=== PATIENT | female | born 1940 | race Caucasian/White ===

== ENCOUNTER 2022-04-05 10:10 | Emergency (ER) | payer MEDICARE, OTHER, SELFPAY ==
[2022-04-05] VITALS (18 sets, daily range): BP systolic 137–193; BP diastolic 61–79; PULSE 65–71; RESP 16–22; TEMP 36.5; O2SAT 96–100; BMI 23.5
--- NOTE | 2022-04-05 10:22 | DI.RAD.S_ITS ---
PROCEDURE: XR ANKLE LT MIN 3V INDICATIONS: missed step, fall, +deform L ankle TECHNIQUE: 3 views of the ankle were acquired. COMPARISON: None. FINDINGS: Bones: Significant dorsal and lateral subluxation of tibiotalar joint is seen with complete disruption of ankle mortise. Acute slightly comminuted fracture involving medial malleolus with lateral displacement of fractured fragment is seen. Acute slightly comminuted oblique fracture through distal fibular shaft/lateral malleolus is also seen with lateral displacement at fracture site. There is also suggestion of minimally displaced posterior malleolus fracture. Soft tissues: No tibiotalar joint effusion. Achilles tendon appears normal. Diffuse soft tissue swelling surrounding ankle joint is seen. IMPRESSION: Acute comminuted and displaced trimalleolar fracture as above. Dictated by: Curtis rOtez M.D. on 04/05/2022 at 10:51 Approved by: Curtis Ortez M.D. on 04/05/2022 at 10:52
--- NOTE | 2022-04-05 11:04 | ED_ITS ---
HPI - Extremity Injury (Lower) General Chief Complaint: Extremity Injury, Lower Stated Complaint: GLF ankle swelling Time Seen by Provider: 04/05/22 11:03 Source: patient, EMS and RN notes reviewed Mode of arrival: EMS Limitations: no limitations History of Present Illness HPI Narrative: This is an 81-year-old female with history of thrombocytosis, hypertension, dyslipidemia on an aspirin daily with history of partial hysterectomy. Patient states today she was walking down her steps she missed the last step and fell on her ankle. Patient has pain in her left ankle with obvious deformity and swelling and bruising. She states she did not hurt anything else she denies headache, no neck pain, no chest pain or shortness of breath, no back con abdominal or flank pain. She denies hitting her head. She denies any loss of consciousness. No nausea or vomiting. No GI or urinary symptoms. She states the ankle hurts but she denies any numbness or tingling currently. She can wiggle her toes but hurts to move it. She denies injuries elsewhere. Patient is on hydroxyurea for thrombocytosis. She has a history of partial hysterectomy. Patient states occasional tobacco, 1 alcoholic drink daily in the evening she has not had any today. No illicit. Phyllis Baig is her primary care. Patient states she is never had any issues with anesthesia. Related Data Home Medications Medication Instructions Recorded Confirmed [PROBIOTIC] 1 cap PO QDAY ##0 12/16/16 allopurinol 100 mg tablet 100 mg PO QDAY ##0 12/16/16 atorvastatin 80 mg tablet 80 mg PO HS ##0 12/16/16 coenzyme Q10 100 mg capsule (Co PO QDAY ##0 12/16/16 Q-10) folic acid 800 mcg tablet 0.8 mg PO QDAY ##0 12/16/16 furosemide 20 mg tablet 20 mg PO QDAY ##0 12/16/16 hydroxyurea 500 mg capsule 1,000 mg PO EVERY OTHER DAY ##0 12/16/16 hydroxyurea 500 mg capsule (Hydrea) 500 mg PO EVERY OTHER DAY ##0 12/16/16 losartan 50 mg tablet 50 mg PO QDAY ##0 12/16/16 metoprolol succinate 100 mg 100 mg PO QPM ##0 12/16/16 tablet,extended release 24 hr (Toprol XL) psyllium husk 0.52 gram capsule 2 cap PO QDAY ##0 12/16/16 (Metamucil) Previous Rx's Medication Instructions Recorded aspirin 81 mg tablet,delayed 325 mg PO QPM #30 tabs 12/17/16 release ranitidine HCl 300 mg tablet 300 mg PO QDAY #30 tabs 12/17/16 (Zantac) tramadol 50 mg tablet 50 mg PO Q6H PRN pain #14 tabs 04/05/22 Allergies Allergy/AdvReac Type Severity Reaction Status Date / Time Sulfa (Sulfonamide Allergy Unknown Unverified 06/02/17 12:48 Antibiotics) [SULFA (SULFONAMIDE ANTIBIOTICS)] Review of Systems Review of Systems ROS Unobtainable: All systems reviewed & are unremarkable except as noted in HPI and below Exam Narrative Exam Narrative: GEN: ,Patient appears in [id number] distress. HEAD: No evidence of trauma, no raccoon/Jennings sign. NECK: Nontender, painless range of motion, trachea midline Negative Nexus criteria, there is no midline line tenderness, distracting injury, altered mental status, neuro deficit, recent EtOH. EYES: PERRLA, EOMI ENT: External inspection normal, trachea is midline, Nares are clear, no septal hematoma, no dental or oral injury, airway is normal and with normal occlusion, No bony tenderness RESP: Chest is nontender and has symmetric movement, no ecchymosis, breath sounds are normal no crackles, wheezes or rales CVS: Heart sounds are normal, no murmur noted, No JVD. ABG/GI: Nontender, soft, normal bowel sounds, no distention, no organomegaly, pelvic rock is negative NEURO: Oriented AOx3, neuro is grossly intact, sensation and motor is normal all 4 extremities moving, cranial nerves II through XII are intact, GCS is 15 PSYCH: Normal mood and affect SKIN: Intact, warm and dry, no crepitus and without decubitus BACK: No CVA tenderness, no vertebral tenderness, no step-off's, no crepitus EXT: Patient has obvious deformity and ecchymosis of the left ankle. Cap refills less than 2 seconds. Patient does not have any pallor or cyanosis. She does not have any bony tenderness of the left her lower extremity in the foot toes or knee/hip. Rest of extremities are atraumatic with normal pulses and range of motion. Initial Vital Signs Initial Vital Signs: Vital Signs Pulse Rate 69 04/05/22 10:13 Pulse Oximetry 97 04/05/22 10:13 Procedures Orthopedic Joint Reduction Joint #1: Time of procedure: 12:00 Time Out Performed: Yes Side: left Joint Reduction Location: ankle Analgesia: other (iv fentanyl) Post-reduction neuro exam: intact and no change Post-reduction vascular: intact Post Reduction X-Ray Obtained: Yes Splint Applied: Yes Patient Tolerated Procedure: Well and No complications Orthopedic Splinting/Casting Injury #1: Time of procedure: 12:00 Lower Extremity Injury Location: ankle Lower Extremity Immobilizer: posterior splint and stirrup splint Other Orthopedic Equipment: walker Post splinting neuro exam: intact and no change Post splinting vascular exam: intact Placed by: Provider Course Orders Ordered: ED Orders 04/05/22 10:22 XR ankle LT min 3V Stat 04/05/22 11:58 XR ankle LT min 3V Stat Discontinued Medications Hydrocodone Bitart/Acetaminophen (Hydrocodone/Acet 10/325 Tablet) 1 tab PO NOW ONE Stop: 04/05/22 11:59 Last Admin: 04/05/22 12:21 Dose: 1 tab Documented By: AUGUSTO Fentanyl (Fentanyl 100 Mcg/2 Ml Inj) 25 mcg IV NOW ONE Stop: 04/05/22 10:49 Last Admin: 04/05/22 11:40 Dose: 25 mcg Documented By: AUGUSTO Vital Signs Vital signs: Vital Signs - 8 hr 04/05/22 10:20 04/05/22 10:20 04/05/22 10:30 Pulse Rate 68 67 Respiratory Rate Blood Pressure 163/73 H Pulse Oximetry 97 97 04/05/22 10:33 04/05/22 10:33 04/05/22 11:00 Pulse Rate 65 67 Respiratory Rate 22 Blood Pressure 181/71 H Pulse Oximetry 96 98 04/05/22 11:01 04/05/22 11:01 04/05/22 11:30 Pulse Rate 67 Respiratory Rate Blood Pressure 141/64 H 140/63 Pulse Oximetry 97 04/05/22 11:30 04/05/22 11:53 04/05/22 11:53 Pulse Rate 69 71 Respiratory Rate Blood Pressure 154/74 H Pulse Oximetry 98 97 04/05/22 12:00 04/05/22 12:01 04/05/22 12:01 Pulse Rate 70 70 Respiratory Rate Blood Pressure 137/62 Pulse Oximetry 96 04/05/22 12:28 04/05/22 12:30 04/05/22 12:36 Pulse Rate 71 70 Respiratory Rate 22 Blood Pressure 141/61 H Pulse Oximetry 97 100 04/05/22 12:57 04/05/22 13:00 04/05/22 13:01 Pulse Rate 65 68 Respiratory Rate Blood Pressure 152/61 H Pulse Oximetry 100 99 MDM - Extremity Injury (Lower) Imaging Data Extremity x-ray #1: Radiologist's Impression: Mayi Isabel??81??F??1940 ? Allergy/Adv: Sulfa (Sulfonamide Antibiotics) (More??) Close Ankle X-Ray (Signed) Curtis Ortez - 04/05/22 [place] [address] XRay Report Signed Patient: Mayi Isabel MR#: [id number] : 1940 Acct:[id number] Age/Sex: 81 / F Date of Service: 04/05/22 Loc: ED Accession Number: [id number] ?? Procedure: XR ankle LT min 3V Ordering Provider: Larisa Lewis D.O. PROCEDURE:? XR ANKLE LT MIN 3V ? INDICATIONS:? missed step, fall, +deform L ankle ? TECHNIQUE:? 3 views of the ankle were acquired.? ? COMPARISON:? None. ? FINDINGS:? ? Bones:? Significant dorsal and lateral subluxation of tibiotalar joint is seen with complete disruption of ankle mortise.? Acute slightly comminuted fracture involving medial malleolus with lateral displacement of fractured fragment is seen.? Acute slightly comminuted oblique fracture through distal fibular shaft/lateral malleolus is also seen with lateral displacement at fracture site.? There is also suggestion of minimally displaced posterior malleolus fracture. ? Soft tissues:? No tibiotalar joint effusion.? Achilles tendon appears normal.? Diffuse soft tissue swelling surrounding ankle joint is seen. ? ? IMPRESSION:? Acute comminuted and displaced trimalleolar fracture as above. ? ? Dictated by: Curtis Ortez M.D. on 04/05/2022 at 10:51 ? ? Approved by: Curtis Ortez M.D. on 04/05/2022 at 10:52?? [facility] Narrative Medical decision making narrative: This an 81-year-old female who had fall when she missed the last step on her stairs. Patient denies injury elsewhere. She is obvious fracture with some deformity quite a bit of bruising no laceration or tenting. Patient had cap refill intact, sensation intact. Discussed conscious sedation versus IV pain medications reduction. Patient elects for IV pain medication and patient had traction some slight internal rotation and was splinted. Neurovascularly intact afterwards. Repeat x-rays. Patient tolerated procedure very well. Spoke with Dr. Parikh from Orthopedic surgery. Patient needs to follow up with Orthopedics for surgery. He reviewed images. Discharge Plan Departure Patient Disposition: Home Clinical Impression: Ankle fracture, left Instructions: DI for Ankle Fracture Activity Restrictions/Additional Instructions: Follow-up with orthopedic surgery. Please call tomorrow morning to set up an appointment in the next week. Referral is included below. You may take Tylenol up to a 1000 mg every 6 hours as needed for pain. If in adequate you can take tramadol 1-2 tablets every 6 hours as needed for pain. This medication can make you sleepy do not drive, perform hazardous activities or make any major decisions while taking it. This medication will make you constipated please take a stool softener once to twice daily until stools are soft and regular. Prescription sent to [facility] Splint Care: Keep splint clean and dry. Elevated affected body part to decrease swelling. OK to use ice pack on the affected body part. Use for 15-20 minutes each time, for 5-6x per day. If you develop worsening pain, numbness, tingling, discoloration of the affected body part, loosen the splint by loosening the CHELSEY wrap, and either see your doctor for an urgent re-assessment, or return to the Emergency Department. Return to the Emergency Department for any new or worsening symptoms. Prescriptions: New tramadol 50 mg tablet 50 mg PO Q6H PRN (Reason: pain) Qty: 14 0RF No Action hydroxyurea 500 MG capsule 1,000 mg PO EVERY OTHER DAY Qty: 0 losartan 50 MG tablet 50 mg PO QDAY Qty: 0 hydroxyurea [Hydrea] 500 MG capsule 500 mg PO EVERY OTHER DAY Qty: 0 atorvastatin 80 MG tablet 80 mg PO HS Qty: 0 furosemide 20 MG tablet 20 mg PO QDAY Qty: 0 metoprolol succinate [Toprol XL] 100 MG tablet extended release 24 hr 100 mg PO QPM Qty: 0 allopurinol 100 MG tablet 100 mg PO QDAY Qty: 0 folic acid 0.8 MG tablet 0.8 mg PO QDAY Qty: 0 [PROBIOTIC] 1 cap PO QDAY Qty: 0 psyllium husk [Metamucil] 0.52 GM capsule 2 cap PO QDAY Qty: 0 coenzyme Q10 [Co Q-10] 100 mg capsule PO QDAY Qty: 0 aspirin 81 MG tablet,delayed release (DR/EC) 325 mg PO QPM Qty: 30 0RF ranitidine HCl [Zantac] 300 MG tablet 300 mg PO QDAY Qty: 30 0RF Referrals: Nikko Parikh MD [Physician] - Stand Alone Forms: Patient Portal/API
[2022-04-05] MEDS: fentaNYL 100 MCG/2 ML INJ 25 MCG IV (11:40)
--- NOTE | 2022-04-05 11:58 | DI.RAD.S_ITS ---
PROCEDURE: XR ANKLE LT MIN 3V INDICATIONS: post TECHNIQUE: 3 views of the ankle were acquired. COMPARISON: [facility], CR, XR ANKLE LT MIN 3V, 04/05/2022, 10:31. FINDINGS: Bones: Interval reduction of earlier noted trimalleolar fracture and subluxation of left ankle with significantly improved ankle alignment. No new fracture or dislocation. No suspicious bony lesions. Soft tissues: No tibiotalar joint effusion. Achilles tendon appears normal. IMPRESSION: Interval reduction of earlier noted displaced trimalleolar fracture and subluxation with improved ankle alignment. Dictated by: Curtis Ortez M.D. on 04/05/2022 at 12:32 Approved by: Curtis Ortez M.D. on 04/05/2022 at 12:33
[2022-04-05] MEDS: HYDROCODONE/ACET 10/325 TABLET 1 TAB PO (12:21)
== END 2022-04-05 13:43 | disposition home or self-care (01) ==
PROVIDERS: Emergency Provider Emergency Medicine
DX: S82.52XA Displaced fracture of medial malleolus of left tibia, initial encounter for closed fracture (principal); W10.9XXA Fall (on) (from) unspecified stairs and steps, initial encounter
CPT/HCPCS: 27762; 29515; 73610; 99284; J3010

== ENCOUNTER 2022-04-10 12:36 | Day surgery (SDC) | payer MEDICARE, OTHER, SELFPAY ==
[2022-04-10] VITALS (10 sets, daily range): BP systolic 97–121; BP diastolic 37–70; PULSE 60–72; RESP 12–18; TEMP 36.6–37.2; O2SAT 94–97; BMI 23.5
--- NOTE | 2022-04-10 | DI.RAD.S_ITS ---
PROCEDURE: XR ANKLE LT 2V INDICATIONS: ORIF TECHNIQUE: Four intraoperative fluoroscopic spot views of the ankle were acquired. COMPARISON: [facility], CR, XR ANKLE LT MIN 3V, 04/05/2022, 11:57. FINDINGS: Intraoperative fluoroscopy demonstrates hardware along the medial distal tibia and lateral fibula. Radiopaque band traverses the syndesmosis. There is normal mortise alignment. IMPRESSION: Expected intraoperative appearance of ORIF left ankle. Dictated by: Aydee Benson M.D. on 04/10/2022 at 20:30 Approved by: Aydee Benson M.D. on 04/10/2022 at 20:31
[2022-04-10] MEDS: LACTATED RINGERS 1,000 ML 100 ML IV ×2 (13:41→16:55)
--- NOTE | 2022-04-10 14:33 | PM.PREOP ---
Pre-operative Note Interval Note History & Physical reviewed/Exam performed by Physician: Yes Changes to H&P: No
--- NOTE | 2022-04-10 15:04 | SUR.PREOP ---
Block start time [1440] . Monitoring initiated and maintained throughout procedure. Oxygen and medications given per anesthesiologist instructions. Patient remained stable throughout procedure, no adverse reactions noted. Block end time [1455].
[2022-04-10] MEDS: CEFAZOLIN 2 GM/100 ML PREMIX 100 ML IV (15:10)
[2022-04-10] MEDS: BUPIVACAINE 0.5% W/ EPI (PF) 30 ML VIAL INJ (15:44)
--- NOTE | 2022-04-10 15:47 | SUR.OPER ---
Supine on padded OR bed, head on pillow, arms secured on padded arm boards at <90 degrees abduction, legs uncrossed, safety belt at abdomen, tape over blanket over nonoperative lower leg.
--- NOTE | 2022-04-10 17:50 | P.OP_ITS ---
Operative Date/Time/Diagnoses Date of procedure: 04/10/22 Time of procedure: 14:50 Pre-op diagnosis: Trimalleolar ankle fracture left Syndesmotic disruption left Osteoporotic left trimalleolar ankle fracture Post-op diagnosis: same Procedure & Clinicians Procedure: Open reduction internal fixation trimalleolar ankle fracture without fixation posterior malleolus Open reduction internal fixation syndesmosis Same procedure as scheduled: Yes Indications: Patient is an 81-year-old female that sustained a ground level fall down stairs and sustained a osteoporotic trimalleolar ankle fracture dislocation. This was a trimalleolar fracture dislocation. She was seen in [facility] Emergency room and placed in a splint. She is an unstable ankle fracture pattern has been indicated for surgical fixation to allow mobility, function and reduce risk of posttraumatic arthritis deformity and dysfunction. The risks and benefits of the procedure have been discussed with the patient and given the opportunity to ask questions. The risks of surgery include but are not limited to infection, malunion, nonunion, persistence of pain, damage to nerves and blood vessels, posttraumatic arthritis, DVT, PE, cardiopulmonary complications and . The patient expressed a thorough understanding of the risks and benefits of surgery and has elected to proceed. Consent was signed in the office. Surgeon: Tiesha Cespedes Click Yes if Unassisted: Yes Anesthesia Type: General, Peripheral nerve block and Local (Peripheral nerve block was placed by the anesthesia team for postoperative pain control. Additional local anesthetic with 0.25% Marcaine was added, 20 cc) Operative Notes Findings: Severely osteoporotic bone around the medial malleolus fracture with comminution. Gonzalez B distal fibula fracture. Mildly displaced small posterior malleolus fracture and disruption of syndesmosis Ankle was reduced with supination Danielle maneuver. Small open incision was made to reduce and clamp the fibula fracture restoring length and alignment. This was fixed with a Arthrex fibula locked nail 3.8 x 130 and interlocking screws. The medial malleolus was comminuted and osteoporotic it was fixed with a distal tibial medial hook plate with separate 4-0 cannulated screw through the tines to help compress the fracture fragment. Posterior malleolus fracture was small and treated non operatively but syndesmosis was stabilized with a syndesmotic suture button tightrope Xp device Stress examination of the ankle was stable after fixation was completed. Patient had moderate swelling but no blisters and was somewhat improved from clinic visit earlier in the week. There is ecchymosis about the knee and ankle Closure Type: primary Specimen(s): none sent Prosthetic devices, grafts, tissues, transplants, or devices: Arthrex fibula locked nail 3.8 x 130 Distal interlocking screws 2.7 x2 and 1x 3.0 Medial malleolus: Arthrex medial malleolus hook plate 3.5 cortical screws proximal, 2.7 locking screws distally, 4.0 cannulated screw Syndesmosis: Tight rope XP, Arthrex Estimated Blood Loss (mL): 10 Blood products transfused: none Tourniquet time (min): 80 Procedure in detail: Patient was seen in the preoperative area the site of surgery was marked informed consent confirmed. She was brought back to the operating room by the anesthesia team positioned supine on operative table. A nerve block was placed by the anesthesia team in the block room for postoperative pain control. Patient was placed on operative table. Bony prominences were well padded. A well-padded thigh tourniquet was placed on the left thigh. The left lower extremity was prepped and draped in the standard sterile fashion. A formal time-out procedure was performed confirming the patient's side and site of surgery administration of appropriate preoperative antibiotic. All were in agreement. Informed consent was present Esmarch was used for exsanguination the tourniquet raised on the thigh to 250 mmHg. Fibular fixation: Attention was turned to the ankle. A supination quickly maneuver was done to help with the reduction. C-arm was brought in. A wire was used to marquise out the level of the fibula fracture and entry trajectories for the guidewire for the fibula locked nail. Then a small incision at the level of the fracture was made laterally and dissected down to bone. A lobster claw clamp was used to reduce the fracture restoring length and alignment and rotation. Once this was complete the guidewire for the fibula locked nail was introduced proximally 1 cm distal to the end of the distal tibia and advanced to the bone just lateral to the malleolar fossa and in line with the canal on the lateral view. The guidewire was oscillated across the distal fragment and then into the canal. Once trajectory was acceptable this was over-drilled 1st with the opening drill and then with the Reamer. The 4-0 Reamer was placed and the 3.8 nail selected. 3.8 nail was then placed into the canal after the guidewire was removed. The nail was sunk to the appropriate level then the talons were deployed. Distal interlocking screws were placed. Of note the most distal 2.7 screw pulled directly out back on the screwdriver therefore this was replaced with a 3.0 screw. Once distal fixation with screws was completed attention was turned medially. Medial malleolus fixation. A separate incision was made over the level of the medial malleolar fracture care was taken to protect the saphenous neurovascular bundle. The fracture was demonstrated there was infolded periosteum this was removed fracture was reduced and held with a K-wire. There was noted to be excessive poor bone quality and osteoporosis around the medial malleolar fragment and medial wall of the tibia metaphysis. Therefore the patient was selected for a locking hook plate to address the osteoporotic nature of the bone. The hook plate was positioned on the bone and provisionally fixed with BB tacks. Then a 4-0 screw was drilled and placed over the K-wire through the tines of the plate to help compress this to bone and provide additional fixation in the distal fragment. Once this was completed proximal nonlocking screws were placed to bring the plate to the bone proximally and then locking 2.7 screws distally. This provided anatomic reduction of the medial malleolus fracture and stable fixation for the osteoporotic fracture. The posterior malleolus fracture was small and treated non operatively. Because the posterior malleolus fracture was treated non operatively and instability in the syndesmosis flexion was made for a syndesmotic suture button device this decision was made for the width of the button on either side would allow more dispersed forces and reduce risk of loosening or pullout compared to a screw for this particular osteoporotic patient. This was drilled through the guide from the fibula locked nail and then placed in the standard fashion. This was tightened down and then fluoroscopic stress exam was performed noted anatomic reduction of the syndesmosis and no widening under stress exam post fixation. Once this was completed the tourniquet was released hemostasis was achieved and the wounds were closed in a layered fashion with 2-0 Vicryl 4-0 Monocryl and 3-0 nylon suture. Additional local anesthetic was infiltrated. Wounds were dressed with Xeroform gauze Webril and a bulky Romero style splint. Patient was woken from anesthesia and taken to the recovery room in good condition. There no immediate complications from this procedure. All counts were correct. Complications: none Post-operative Condition: stable Disposition: PACU Plan for aftercare: Nonweightbearing or toe-touch but it is okay to put the foot down for balance and transfers. Once incisions are healed at 1st postoperative appointment will try to advance weight-bearing in a walking boot. We will use aspirin 325 daily for DVT prophylaxis. Keep splint dry.
== END 2022-04-10 18:16 | disposition home or self-care (01) ==
PROVIDERS: Referring Provider Orthopaedic Surgery Foot and Ankle Surgery; Visit Provider Orthopaedic Surgery Foot and Ankle Surgery
PROC: (CPT 27829; principal; 2022-04-10 14:30)
DX: S82.852A Displaced trimalleolar fracture of left lower leg, initial encounter for closed fracture (principal); S93.432A Sprain of tibiofibular ligament of left ankle, initial encounter; M81.0 Age-related osteoporosis without current pathological fracture; W10.9XXA Fall (on) (from) unspecified stairs and steps, initial encounter; Y92.009 Unspecified place in unspecified non-institutional (private) residence as the place of occurrence of the external cause; G89.18 Other acute postprocedural pain
CPT/HCPCS: 27829; 27822; 64450; 73600; 76000; C1713; J0690; J1100; J2250; J2405; J2704; J3010

== ENCOUNTER → 2023-07-30 14:33 | Outpatient (CLI) | payer MEDICARE, OTHER, SELFPAY ==
--- NOTE | 2023-07-30 | DI.ECHO.S_ITS ---
[facility] : : [address] : : [place] : : [address] : : Phone: [phone] Echocardiogram Report + + :Name: TIMOTHY MCCLENDON Study Date: 07/30/2023 Height: 64 in : :Hospital ReadingLocation: Weight: 150 lb : : Gender: Female BSA: 1.7 m2 : :: 1940 Age: 83 yrs BP: 142/81 mmHg: :Reason For Study: CARDIOMYOPATHY : :Ordering Physician: GAIL, : :REINA Performed By: Lisa Lucas : :Referring: REINA REYNOLDS : + + Interpretation Summary A-fib with controlled rate. Normal LV size and mild concentric LVH. Normal wall motion and LV systolic function. Ejection fraction 60-65%. Mild left atrial enlargement; otherwise normal chamber sizes. No significant valvular abnormalities. No prior study available for comparison. Procedure: A two-dimensional transthoracic echocardiogram with color flow and Doppler was performed. The study quality was technically adequate. There is no prior echocardiogram noted for this patient. The patient was in atrial fibrillation with heart rates between 50-69 bpm during the exam. Left Ventricle: The left ventricle is normal in size. Left ventricular wall thickness is mildly increased. The ejection fraction is estimated to be 60- 65%. Diastolic function could not be accurately assessed due to atrial fibrillation. Right Ventricle: The right ventricle is at the upper limits of normal in size. The right ventricular systolic function is normal. Atria: The left atrium is mildly dilated. Right atrial size is normal. There is no Doppler evidence for an interatrial shunt. Mitral Valve: The mitral valve is normal in structure and function. There is mild mitral regurgitation. Aortic Valve: The aortic valve is trileaflet. The aortic valve opens well. There is no aortic valve stenosis. There is trace aortic regurgitation. Tricuspid Valve: The tricuspid valve is normal in structure and function. There is mild tricuspid regurgitation. The right ventricular systolic pressure is estimated to be at least 47 mmHg based on an estimated right atrial pressure of 3 mm Hg. Pulmonic Valve: The pulmonic valve leaflets are thin and pliable; valve motion is normal. There is mild pulmonic regurgitation. Great Vessels: The aortic root is normal size. The dimensions of the ascending aorta are normal. The IVC is of normal diameter and collapses greater than 50% with a sniff. This suggests a low right atrial pressure of 3 mm Hg. Pericardium/ Pleura There is no pericardial effusion. There is a small left- sided pleural effusion. MMode/2D Measurements & Calculations LVIDd: 5.1 cm LVOT diam: 2.0 cm LVIDs: 3.3 cm Ao root diam: 3.2 cm FS: 35.7 % asc Aorta Diam: 3.8 cm IVSd: 1.2 cm Ao Arch Diam (Prox Trans): 3.0 cm LVPWd: 1.1 cm LV arevalo. diameter/BSA (cm/m^2): 2.9 LV sys. diameter/BSA (cm/m^2): 1.9 LA A2 area: 21.4 cm2 RA long axis: 6.2 cm LA A4 area: 23.8 cm2 RA area: 19.4 cm2 LA length (vol): 6.0 cm RA vol: 51.9 ml LA vol: 72.9 ml RA : 30.0 ml/m2 LA vol index: 42.1 ml/m2 IVC diam: 1.8 cm RVD1 (basal): 4.0 cm RVD2 (mid): 3.5 cm TAPSE: 1.7 cm Doppler Measurements & Calculations Ao V2 max: 148.1 cm/sec LVOT Max Junior: 104.7 cm/sec Ao V2 mean: 98.9 cm/sec LV V1 max P.4 mmHg Ao max P.8 mmHg LV V1 VTI: 22.3 cm Ao mean P.4 mmHg JUAN PABLO(I,D): 2.2 cm2 Ao V2 VTI: 32.5 cm JUAN PABLO(V,D): 2.3 cm2 sev ratio: 0.69 JUAN PABLO indexed to BSA (cm^2/m^2): 1.3 MV E max junior: 92.8 cm/sec TR max junior: 327.7 cm/sec MV A max junior: 0.71 cm/sec TR max P.0 mmHg MV E/A: 131.3 PA V2 max: 95.7 cm/sec Med Peak E' Junior: 8.8 cm/sec PA V2 mean: 71.2 cm/sec E/E' med: 10.6 PA mean P.2 mmHg Lat Peak E' Junior: 11.0 cm/sec PA pr(Accel): 58.4 mmHg E/E' lat: 8.4 E/e' average: 9.5 MV dec time: 0.19 sec SV(LVOT): 72.3 ml Electronically signed by: Reina Reynolds M.D. on Reading Physician:07/30/2023 04:27 PM
== END ==
PROVIDERS: PCP Nurse Practitioner Family; Referring Provider Internal Medicine; Visit Provider Internal Medicine
DX: I42.8 Other cardiomyopathies (principal); I08.1 Rheumatic disorders of both mitral and tricuspid valves; J90 Pleural effusion, not elsewhere classified
CPT/HCPCS: 93306

== ENCOUNTER 2023-11-17 10:43 | Day surgery (SDC) | payer MEDICARE, OTHER, SELFPAY ==
[2023-11-12 12:30] VITALS: BMI 25.7
[2023-11-17] VITALS (15 sets, daily range): BP systolic 86–155; BP diastolic 42–75; PULSE 46–61; RESP 7–18; TEMP 35.2–36.8; O2SAT 85–100; BMI 23.6
--- NOTE | 2023-11-17 06:00 | DI.RAD.S_ITS ---
PROCEDURE: XR KNEE RT 1TO2V INDICATIONS: TKA TECHNIQUE: 2 view(s) of the knee acquired. COMPARISON: None. FINDINGS: Bones: Patient is status post knee joint arthroplasty. Hardware components are in expected positions. Visualized bony structures are intact. Soft tissues: Overlying postoperative changes are noted. IMPRESSION: Expected post-operative appearance after right total knee arthroplasty. Dictated by: New Julian M.D. on 11/18/2023 at 11:40 Approved by: New Julian M.D. on 11/18/2023 at 11:40
[2023-11-17] MEDS: LACTATED RINGERS 1,000 ML 42 ML IV ×2 (11:54→13:44)
[2023-11-17] MEDS: ACETAMINOPHEN 325 MG TABLET 975 MG PO (11:54)
--- NOTE | 2023-11-17 12:30 | PM.PREOP ---
Pre-operative Note Interval Note History & Physical reviewed/Exam performed by Physician: Yes Changes to H&P: No
[2023-11-17] MEDS: CEFAZOLIN 2 GM/100 ML PREMIX 100 ML IV ×2 (12:55→20:39)
--- NOTE | 2023-11-17 13:35 | SUR.OPER ---
Supine on padded OR bed. Pillow under head, arms secured on padded armboards <90 degree abduction. Safety belt across torso. Non-operative leg secured with tape over blanket over lower leg. Operative leg secured in DeMayo/Wu/Nathe positioner. Foam padded brace at thigh of operative leg.
[2023-11-17] MEDS: BUPIVACAINE 0.25% (PF) 60 ML, EPINEPHrine 0.3 MG INJ (13:41)
[2023-11-17] MEDS: BUPIVACAINE LIPOSOME 266 MG/20 ML VIAL INJ (13:42)
[2023-11-17] MEDS: TRANEXAMIC ACID 1,000 MG VIAL 1000 MG INJ (14:33)
--- NOTE | 2023-11-17 15:05 | P.OP_ITS ---
Operative Date/Time/Diagnoses Date of procedure: 11/17/23 Time of procedure: 13:30 Pre-op diagnosis: Right knee arthritis Post-op diagnosis: same Procedure & Clinicians Procedure: Total knee replacement right CPT code 60410 Robotic assisted surgery S2 900 Computer navigation assisted surgery 35135 Same procedure as scheduled: Yes Indications: The patient is a 83-year-old female with end-stage knee arthritis that has failed conservative treatments and has been indicated for total knee arthroplasty. The risks and benefits of the procedure have been discussed with the patient and given the opportunity to ask questions. The risks of surgery include but are not limited to infection, malunion, nonunion, persistence of pain, damage to nerves and blood vessels, posttraumatic arthritis, DVT, PE, coardiopulmonary complications and . The patient expressed a thorough understanding of the risks and benefits of surgery and has elected to proceed. Consent was signed. Surgeon: Tiesha Cespedes Email Marketing Coordinator: Dayton Pollard Anesthesia Type: General and Local Operative Notes Findings: End-stage right knee arthritis severe eburnated bone patellofemoral joint high- grade arthritis medial and lateral compartments with a degenerative meniscal tears and meniscal calcification. No fractures. Closure Type: primary Specimen(s): none sent Prosthetic devices, grafts, tissues, transplants, or devices: Bullock and nephew journey bCS II Femur cobalt chromium size 4 Tibia size 3 Poly size 9 mm Patella 32.5 x 7.5 round Estimated Blood Loss (mL): 30 Blood products transfused: none Tourniquet time (min): 79 Procedure in detail: Patient was seen in the preoperative area where the patient and site of surgery were identified in the operative knee was marked informed consent confirmed. This was the right knee. Patient received the appropriate preoperative antibiotics this was 2 g of Ancef. And other preoperative medications and was taken to the operating room placed on operating table in the supine position. General anesthetic was administered. The operative extremity was then prepped and draped in the standard sterile fashion with a nonsterile tourniquet high on the thigh. Patient was placed on the green foam bolsters. A lateral post was placed at the level of the proximal thigh /trochanter area as a lateral post. Formal time-out procedure was performed confirming the patient's side and site of surgery and administration of appropriate preoperative antibiotics and implants were in the room accounted for. All were in agreement. Patient received a preoperative dose of tranexamic acid and then a 2nd dose at tourniquet release Patient was prepped and draped in the standard sterile fashion and the right foot was placed into the leg del valle. This was taken into high flexion and the incision was marked out over the anterior knee to the level of the medial tubercle tubercle. The Esmarch was then used for exsanguination and the tourniquet was inflated to 250 mmHg. Was made through the skin and subcutaneous tissue in high flexion this was then brought down into 30? of flexion for the medial parapatellar arthrotomy. A marker pen was used to marquise the arthrotomy site for later repair. Joint fluid was evacuated. The anterior osteophytes and soft tissues were removed. Routine medial release was initially made along the medial proximal tibia with Bovie. The patella was 1st cut using the saw sized and prepped and then subluxed throughout the case and protected. The leg was then taken into extension and the patella was everted and the patella was cut to accommodate the patellar button. This was sized to a 32 mm button for a 7.5 mm thickness to recreate the original dimensions of the patella. Poly was removed and the protector replaced and the patella was subluxed and the knee was taken back up into flexion and attention was returned to the femur. Then the rotational landmarks of [place]ites[place] line and the trans epicondylar axis were marked on the femur with electrocautery. ACL and PCL were released. Then the Cori robotic pins were placed into the femur and tibia and the race set up. Landmarks were established and the robotic planning was commenced. Plan was developed and improved and adjusted as necessary to create a balanced knee. Preoperative alignment was 0? of varus postoperative alignment plan for the same. Balance plan with resections for 1-2 mm laxity medial and lateral and balanced in flexion extension was achieved. 3? of external rotation was placed on the distal femur to match the [place] alignment. Plan was satisfactory the bur was used to remove the distal femur then the 5 in 1 cutting block was applied complete the femur cuts. Attention was then turned to the tibia and the tibial resection was made in accordance with the robotic planning. This was checked with the extension block and was appropriate per the plan. The trials were placed. And the femoral notch was cut a standard fashion using Reamer then slap hammer. The knee was trialed and the checked. Knee was balanced in flexion extension. Range of motion 0-130 degrees was obtained. The rotation femoral trial was marked Bovie on the bone and checked with a long trav. The tibia was then finished with a drill and flange cut and then The trial implants were removed. Then in extension the posterior capsule was injected with a mixture of 40 mL of 0.25% Marcaine and 20 mL of 266 mg Exparel care to avoid excessive injection posterior laterally. The remainder of this was saved for the capsule and subcutaneous tissue and placed during cement curing. The wound and bone was irrigated with pulsatile lavage. This was then dried with a sponge. The components were verified and opened and the cement was mixed. Cement was applied to the components and then to the bone then the tibia was cemented in place 1st followed by the femur then the patella. Excess cement was removed. With care looking around the back of the knee. Remainder of the injection was injected around the capsule. trial poly was placed back in the leg was placed into extension for the patellar cementing. After this was cured approximately 15 minutes later and the dilute Betadine solution was placed for at least 3 minutes in the wound this was then irrigated out and the final poly was placed. This was a 9 mm poly. The tourniquet was released hemostasis was achieved. Final 1g of tranexamic acid was given IV at the time of tourniquet release. The capsule was closed with 1. Ethibond suture. Followed by a running Quill stitch. Subcutaneous layer was closed with 3-0 Vicryl suture. Skin was closed with a running V lock suture Stratafix Monocryl type suture and Dermabond. An woo dressing was placed . An Donald wrap was applied. Anesthetic was terminated the patient was woken from anesthesia and taken to recovery room in good condition. There no immediate complications from this procedure. The patient will be maintained on a standard total knee replacement protocol with weight-bearing as tolerated. Complications: none Post-operative Condition: stable Disposition: PACU Plan for aftercare: Weightbear as tolerated. Commence range of motion immediately. Standard postop protocol for total knee arthroplasty. We will work with physical therapy and occupational therapy. We will restart her Eliquis on postoperative day 1. May restart her hydroxyurea in 1 week. Follow up in Orthopedic Clinic in 2 weeks. She has a woo dressing. The woo battery we will stop working after 7 days and the hose can be cut the dressing will remain in place until follow up in orthopedic clinic.
--- NOTE | 2023-11-17 16:33 | SUR.PHASEI ---
1630 - Patient's heart rate consistently in the 40-50's. anesthesia aware and states patient may transfer to floor. Patient not speaking, but following commands and making eye contact and smiling. , Ed, at bedside. Patient said one sentence to him, but is otherwise not talking. Does not appear to be in pain. Anesthesia aware of not talking and states patient may transfer to floor. Report given to receiving floor care RNMonalisa
--- NOTE | 2023-11-17 17:04 | PC.NURSE ---
Patient arrived to room 203 at 1645. VSS, afebrile on 2 LNC. She is A&OX1-2, pleasant. She is not able to rate her pain level but turns side to side in bed and able to slightly lift leg without wincing or moaning. CHANELLE dressing flashing green light, paige wrap c/d/i. supportive at bedside. Bed alarm placed, IVF LR running, purewick placed, admission assessment completed, call light in place, SCD's on, introduced to IS, and frequent rounding.
[2023-11-17] MEDS: ACETAMINOPHEN 325 MG TABLET 650 MG PO ×2 (17:42→22:10)
[2023-11-17] MEDS: LACTATED RINGERS 1,000 ML 100 ML IV (17:43)
[2023-11-17] MEDS: carvediloL 12.5 MG TABLET 25 MG PO (20:38)
[2023-11-17] MEDS: ATORVASTATIN 20 MG TABLET 80 MG PO (20:38)
[2023-11-17] MEDS: DOCUSATE 100 MG CAPSULE PO (20:38)
[2023-11-17] MEDS: OXYCODONE IR 5 MG TABLET PO (23:24)
--- NOTE | 2023-11-18 01:11 | PC.NURSE ---
Bladder scan: 30mL, denies pain/pressure or feeling of needing to void. Encouraging fluids, pt on fluids as ordered.
[2023-11-18 02:53] VITALS: O2SAT 96
[2023-11-18] MEDS: LACTATED RINGERS 1,000 ML 100 ML IV (03:46)
[2023-11-18] MEDS: ACETAMINOPHEN 325 MG TABLET 650 MG PO ×2 (04:40→12:14)
[2023-11-18] MEDS: CEFAZOLIN 2 GM/100 ML PREMIX 100 ML IV (04:40)
[2023-11-18] MEDS: hydrOXYzine HCL 25 MG TABLET PO (04:40)
[2023-11-18 05:06] LABS: Add Manual Diff / Slide Review NO; Basophils Absolute Auto 0 /uL (0-100); Eosinophils Absolute Auto 0 /uL (0-450); Hematocrit 32.5 % (36-46); Hemoglobin 10.9 g/dL (12.0-16.0); Lymphocytes Absolute Auto 300 /uL (1100-4500); Lymphocytes Percent Auto 2.4 % (25-40); Mean Corpuscular HGB Conc 33.7 % (30-36); Mean Corpuscular Hemoglobin 40.2 PG (26-34); Mean Corpuscular Volume 119.5 fL (80-100); Monocytes Absolute Auto 1000 /uL (0-900); Neutrophils Absolute Auto 11600 /uL (1500-7000); Neutrophils Percent Auto 89.6 % (50-75); Platelet Count 490 X10^3/uL (150-400); Red Blood Cell Count 2.72 X10^6/uL (4.0-5.2); Red Cell Distribution Width 14.5 % (11.6-14.8); White Blood Cell Count 12.9 X10^3/uL (4.5-11.0)
[2023-11-18 05:32] LABS: BUN Creatinine Ratio 12.3 (6-22); Blood Urea Nitrogen 9 mg/dL (7-17); Calcium 8.8 mg/dL (8.4-10.2); Carbon Dioxide 26 mmol/L (22-32); Chloride 102 mmol/L (98-107); Estimated Glomerular Filt Rate > 60 mL/min (>60); Glucose 138 mg/dL (80-110); HEMOLYSIS < 15 (0-50); Potassium 4.3 mmol/L (3.4-5.1); Sodium 132 mmol/L (137-145)
[2023-11-18 06:02] LABS: Anisocytosis 1+; Microcytosis 1+; Platelet Estimate Increased on smear
[2023-11-18] MEDS: OXYCODONE IR 5 MG TABLET PO ×2 (06:42→15:27)
[2023-11-18] MEDS: ONDANSETRON 4 MG ODT PO (06:43)
--- NOTE | 2023-11-18 07:21 | PM.DS.1 ---
History of Present Illness History of Present Illness Date Patient Seen: 11/18/23 Time Patient Seen: 07:10 Chief complaint: Right Total Knee Arthroplasty - Robot 11/16 Narrative: The patient is a 83-year-old female with end-stage knee arthritis that has failed conservative treatments and has been indicated for total knee arthroplasty. The risks and benefits of the procedure have been discussed with the patient and given the opportunity to ask questions. The risks of surgery include but are not limited to infection, malunion, nonunion, persistence of pain, damage to nerves and blood vessels, posttraumatic arthritis, DVT, PE, coardiopulmonary complications and . The patient expressed a thorough understanding of the risks and benefits of surgery and has elected to proceed. Consent was signed. Discharge Providers Provider Date of admission: 11/17/2023 Discharge Date: 11/18/23 Primary care physician: JOSE Esteban Consults: 11/17/23 06:00 Consult to Anesthesiology Routine Comment: Consulting Provider: Anesthesiologist Reason for consultation: Regional block for post operative pain control Has provider been notified: No 11/17/23 17:02 Consult to Discharge Planning Routine Comment: Consult to Occupational Therapy Evaluate & Treat Comment: Physician Instructions: Evaluate and treat Consult to Physical Therapy Evaluate & Treat Comment: Physician Instructions: postop TKA protocol Discharge provider: Dayton Pollard PA-C Summary Hospital Course Discharge Diagnosis: Right knee arthritis Hospital Course: Total knee replacement right CPT code 76386 Robotic assisted surgery S2 900 Computer navigation assisted surgery 93937 Same procedure as scheduled: Yes Surgeon: Tiesha Cespedes Carton Forming Machine Tender: Dayton Pollard Anesthesia Type: General and Local Operative Notes Findings: End-stage right knee arthritis severe eburnated bone patellofemoral joint high-grade arthritis medial and lateral compartments with a degenerative meniscal tears and meniscal calcification. No fractures. Closure Type: primary Specimen(s): none sent Prosthetic devices, grafts, tissues, transplants, or devices: Bullock and nephew journey bCS II Femur cobalt chromium size 4 Tibia size 3 Poly size 9 mm Patella 32.5 x 7.5 round Estimated Blood Loss (mL): 30 Blood products transfused: none Tourniquet time (min): 79 Status at Discharge Cognitive/behavioral status at discharge: oriented Functional status at discharge: uses cane/walker Overall status at discharge: patient is progressing back to baseline Time Spent with Patient Time spent: Less than 30 minutes Exam Vital Signs (past 8 hours): - 11/18/23 02:53 Pulse Oximetry 96 Oxygen Flow Rate 0 Fraction of Inspired Oxygen 28 SaO2/FiO2 Ratio 335 Oxygen Delivery Method Nasal Cannula Oxygen Flow Rate 0 Narrative Exam Narrative: Patient has dementia. She oriented to only person. She says she has no pain her leg. No new numbness or tingling in her lower extremities. Denies any fever, chills nausea or vomiting. With encouragement, patient is able to dorsiflex and plantarflex against resistance at the ankles bilaterally. Sensation intact to light touch throughout the lower extremity. SCDs on. Dressing dry and intact. CHANELLE functiong. Objective Labs 11/18/23 04:48 11/18/23 04:48 Labs: Laboratory Results - last 24 hr 11/18/23 04:48 WBC 12.9 H RBC 2.72 L Hgb 10.9 L Hct 32.5 L MCV 119.5 H MCH 40.2 H MCHC 33.7 RDW 14.5 Plt Count 490 H Neut % (Auto) 89.6 H Lymph % (Auto) 2.4 L [place] % (Auto) 8.0 Eos % (Auto) 0.0 L Baso % (Auto) 0.0 Neut # (Auto) 89032 H Lymph # (Auto) 300 L [place] # (Auto) 1000 H Eos # (Auto) 0 Baso # (Auto) 0 Platelet Estimate Increased on smear RBC Morphology See below Anisocytosis 1+ H Microcytosis 1+ H Sodium 132 L Potassium 4.3 Chloride 102 Carbon Dioxide 26 BUN 9 Creatinine 0.73 Estimated GFR > 60 BUN/Creatinine Ratio 12.3 Glucose 138 H Calcium 8.8 PFSH Medical History (Updated 11/17/23 @ 11:57 by Albert Andrade, CAMERON) Memory deficit Normal cardiac ejection fraction (07/30/23) 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) A-fib CAD (coronary artery disease) Anemia CKD (chronic kidney disease), stage III GERD (gastroesophageal reflux disease) CHF (congestive heart failure) HLD (hyperlipidemia) HTN (hypertension) Thrombocytopenia Surgical History (Updated 11/12/23 @ 13:12 by Ade Sanchez RN) H/O hernia repair (10/19/23) H/O cardiac catheterization (2017) History of bone marrow biopsy (09/2009) H/O ovarian cystectomy (09/2016) History of partial hysterectomy Social History household members: spouse Smoking Status: Current some day smoker alcohol intake: current Discharge Assessment & Plan Assessment and Plan Assessment: Status post right knee replacement Plan of Treatment: Discharge home after working with PT. Post operative pain medications have been prescribed and instructed in use. Aspirin 81 mg bid for 6 weeks. Keep CHANELLE dressing on until follow up in clinic in 2 weeks for wound check. Ambulate as tolerated with assistive devices. Start outpatient PT in 5 to 10 days. Discharge Plan Discharge Plan Patient Disposition: Home Provider Discharge Comment: DC pending PT approval Discharge orders & Medications Discharge Orders: Discharge (Order); Ordered 11/18/23 Ordered By: Dayton Pollard Prescriptions: Continued Eliquis 5 mg tablet 5 mg PO BID carvedilol 25 mg tablet 25 mg PO BID hydroxyurea 500 MG capsule 1,000 mg PO EVERY OTHER DAY Qty: 0 losartan 50 MG tablet 50 mg PO QDAY Qty: 0 atorvastatin 80 MG tablet 80 mg PO HS Qty: 0 furosemide 20 MG tablet 20 mg PO QDAY Qty: 0 allopurinol 100 MG tablet 100 mg PO QDAY Qty: 0 magnesium 200 mg Tablet 143 mg PO BID ferrous sulfate 27 mg iron Tablet 27 mg PO DAILY cholecalciferol (vitamin D3) [Vitamin D3] 50 mcg (2,000 unit) Capsule 50 mcg PO DAILY folic acid 800 mcg Tablet 0.8 mg PO DAILY Follow up/Referrals: Dayton Pollard PA-C [[employer] Crane Operator Helper] - 11/30/23 2:00 pm (appt:11/29 @ 2:00 with Radha magana @ [facility] [place] ) Phyllis Cortez ARNP [Primary Care Provider] - Diet/Activity/Treatments Diet: Diet as Tolerated Other treatments: Dressing/Wound care: -Remove the Donlad wrap 48 hours after surgery. -Keep Chanelle or Aquacel dressing in place until postoperative follow-up office visit. -you may see some drainage on the bandage, this is ok. If it is leaking or saturated, then the dressing can be changed to clean gauze or a clean surgical dressing from a pharmacy or reinforced with additional gauze and paper tape or dressings over the top. Otherwise, just keep dressing in place until follow up. If you have a Chanelle dressing in place the battery pack we will stop working after 7 days, at that point the tube can be disconnected or cut off and the rest of the bandage should stay on, just like a regular bandage. -Okay to shower. Keep wound out of direct water stream. No soaking or submerging until all the scabs fall off (approximately 6 weeks). -Please call the office if dressing becomes significantly wet, soiled, or saturated. Activities: -Weight-bearing as tolerated. Use front wheeled walker, and progress to cane when safe. -Continue with home exercises as directed by your physical therapist. -Elevate ?toes above the nose if you have significant swelling in your lower leg. (A wedge pillow is easiest.) -Ice your incision as needed for pain/inflammation/swelling. Protect your skin with a folded pillowcase. Follow-up: -Follow-up with your surgeon or PA in the office in 10-14 days after surgery. -Follow-up with your surgeon 6 weeks postoperatively. Call the office if you have chest pain, shortness of breath, significant swelling that will not resolve with elevating, fever over 101?, significantly worsening pain. [facility]: [phone] You have been discharged with medications. These have already been sent to your pharmacy. Pain include pain medications: Oxycodone take 5 mg orally every 4 hours as needed for pain. If your pain is more severe you may take up to 2 or a maximum 3 pills (15 mg) every 4 hours for pain. Take the smallest dose necessary. Narcotic medication can make you feel constipated. You can get [id number]-[id number]-[id number] stool softener such as docusate sodium-Colace at a pharmacy to help with this. And acetaminophen (Tylenol) take 500-1000 mg 3 times a day for pain control. You also have a prescription for Zofran (ondansetron) this is a strong anti nausea medication that can be taken up to every 8 hours as needed for nausea -Restart the Eliquis postoperative day 1 Skin/Wound/Dressing Care Report to your healthcare provider any signs of infection, such as:: chills, fever, night sweats, increased pain, unusual drainage and unusual redness Visit Report/Discharge Packet Instructions: DI for Knee Replacement, DI for Prescription Opioid Use Stand Alone Forms: Patient Portal/API, Surgery Discharge Discharge Data Primary Care Provider: Phyllis Cortez Attending Provider: Tiesha Cespedes VTE Deep Vein Thrombosis/Pulmonary Embolism Present on Admission: Yes
[2023-11-18 08:00] VITALS: BP 157/67; PULSE 60; RESP 16; TEMP 36.1; O2SAT 95
--- NOTE | 2023-11-18 08:36 | PT.IIE ---
Addendum entered and electronically signed by Rahel Elmore PT 11/18/23 10:06: Typo: T TKA should be R TKA Addendum entered and electronically signed by Rahel Elmore PT 11/18/23 08:36: Sign to Rubina Original Note: Current Diagnoses Unilateral primary osteoarthritis, right knee (11/17/23) Surgery Performed Operation Date: 11/17/23 12:45 Actual Procedures p Total Knee Arthroplasty - Robot(Right) - Tiesha Cespedes MD Surgical History (Last Updated 11/12/23 @ 13:12 by Ade Sanchez, [place]) H/O cardiac catheterization (2017) H/O hernia repair (10/19/23) H/O ovarian cystectomy (09/2016) History of bone marrow biopsy (09/2009) History of partial hysterectomy Medical History (Last Updated 11/17/23 @ 11:57 by Albert Andrade, [place]) A-fib Anemia CAD (coronary artery disease) CHF (congestive heart failure) CKD (chronic kidney disease), stage III GERD (gastroesophageal reflux disease) HLD (hyperlipidemia) HTN (hypertension) Memory deficit 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) Normal cardiac ejection fraction (07/30/23) Thrombocytopenia Physical Therapy Inpatient Evaluation/Re-Eval M1 PT/OT-IP Prior Functional Status Start: 11/18/23 07:44 Freq: NEEDED Status: Active Protocol: Document 11/18/23 08:14 MB (Rec: 11/18/23 08:36 MB [id number]) Medical Review Prior Functional Status Medical History Reviewed Yes Communication Unsure baseline diet and communication, pt looks to to answer all questions, including about pain Mobility and Gait Unclear but it sounds like she was recently using [facility] Activities of Daily Living and IADL's states that pt bathed herself and it sounds like sponge baths and he assisted with dressing and everything else Social History Household Members spouse Living Arrangements House Number of Floors (Floors) Two Floors Number of Stairs To Enter/Railing? 5 steps with left rail to enter or one step that sounds like platform step to enter, second set of several steps with left rail in home Home Environment Standard Height Toilet,Walk in Shower,Tub/Shower Home Equipment Front Wheel Walker,Straight Cane,Bedside Commode Employment Status Retired M2 PT-IP Current Condition Start: 11/18/23 07:44 Freq: NEEDED Status: Active Protocol: Document 11/18/23 08:14 MB (Rec: 11/18/23 08:36 MB [id number]) Physical Therapy Current Condition Current Condition Evaluation Date 11/18/23 Treatment Diagnosis T TKA M3 PT-IP Subjective Start: 11/18/23 07:44 Freq: NEEDED Status: Active Protocol: Document 11/18/23 08:14 MB (Rec: 11/18/23 08:36 MB [id number]) Subjective Physical Therapy Visit Type Type Initial Evaluation Visit Start Time 07:45 Visit Stop Time 08:14 Number of BUSINESS DIVISION CHAIR Visits 0 Physical Therapy Visit Comments Patient Comments Pt pleasantly confused and unable to answer any questions . frequently answers or argues answers with patient . Therapy Pain Assessment Pain When Pain Assessed At Rest Pain Present Pain Present Pain Reported Location Right leg Intensity 5 Scale Used Lyon-Kasper (Faces) Pain Behaviors Guarding,Holding Area Pain Management Techniques Distraction,Modification of Treatment,Re-positioning M4 PT-IP Mobility and Gait Start: 11/18/23 07:44 Freq: NEEDED Status: Active Protocol: Document 11/18/23 08:14 MB (Rec: 11/18/23 08:36 MB [id number]) PT-Transfer Assessment Sit to and From Stand Sit to and from Stand Minimal Assistance,1 Person Assistance,Use of Upper Extremities Equipment Transfer Assistive Device Gait Belt,Front Wheeled Walker Orthotic/Prosthetic Devices or Brace: No Transfers Transfer Destination Chair Transfer Technique Ambulation Transfer Ability Level of Assist Minimal Assistance,1 Person Assistance,Use of Upper Extremities Comments Mobility Comments Pt with confusion with all attempted tasks and has trouble following commands for APs and is unable to figure out QS and resists all right knee movement and c/o pain Gait Assessment Gait Gait Assistance Required: Moderate Assistance Distance (Feet) 70 Able to Maintain Weight Bearing Status Yes During Gait Assistive Devices Assistive Device Gait Belt,Front Wheeled Walker Orthotic/Prosthetic Devices or Brace: No Gait Deviations General Gait Pattern Antalgic,Decreased Stride Length,Decreased Feet Clearance,Flexed Trunk,Narrow Based Gait,Step-to Gait Factors Limiting Gait Function Factors Limiting Gait Function Decreased Activity Tolerance, Decreased Strength,Difficulty Following Directions, Incoordination,Limited Range of Motion,Pain,Poor Balance, Poor Safety Awareness Comments Gait Comments Pt does not track with gait and has trouble following all commands and cannot follow directions as far as right and left and go towards the door, etc. PT must assist in steering walker to get through doorway out and back into room, pt going in towards nsg station on walk back and PT must turn walker to get to the steps as she does not follow commands for this. Pt has trouble following commands to let go of rail to put hands on walker to walk again after stair training. Pt reads floor wet sign so no visual issue, PT does not feel. Pt cannot keep arm still for BP reading and when cuff reads after several inflations it is 157/ 67, 60 in LUE in sitting. Stair Climbing Assessment Evaluation Level of Assist On Stairs Moderate Assistance,1 Person Assistance Devices Stair Climbing Assistive Devices Front Wheel Walker,Left Railing,Right Railing Technique/Endurance Stair Climbing Direction Ascend and Descend Stair Climbing Technique Step to Step Number of Steps Climbed 3 Query Text: Stair Climbing Set # Repetitions (reps) 1 Comments Stair Climbing Comments Very poor command following, tried left foot first ascend holding onto left rail and pt is able to do this fairly well with cues and assistance, cannot use rail on right and step down with right foot first on descend so used both rails to descend safely. Pt nor very aware of situation and PT must con't to provide cues for safety. PT-Balance Assessment Sitting Balance and Reactions Static Sitting Balance Ability Good Dynamic Sitting Balance Ability Fair Standing Balance and Reactions Static Standing Balance Ability Poor Dynamic Standing Balance Ability Poor Device Used RW M5 PT-IP Objective Assessments Start: 11/18/23 07:44 Freq: NEEDED Status: Active Protocol: Document 11/18/23 08:14 MB (Rec: 11/18/23 08:36 MB [id number]) Orientation Orientation/Cognition Level of Alertness Confusional State Orientation Name,Birthday Safety Awareness Decreased Safety Awareness Memory Description Short Term Impaired,Snf Impaired Comments Pt thinks it is May and does not know what she had done as far as surgery yesterday. PT helps reorient her to October but training for right knee is not helpful for pt and cannot follow commands for ankle pump, HS or QS. Gross Range of Motion Upper Extremity ROM Impairments Defer to OT Lower Extremity ROM Assessment Right Impaired Impairments Passive movement only with moving pt to sitting in recliner and flexion to 70 deg . She lacks about 15 deg extension with legs out straight. Strength Lower Extremity Strength Assessment Right Impaired Comments Strength Comments Pt does not follow MMT Coordination Assessment Gross Coordination Gross Coordination Impaired Sensation Assessment Comments Sensation Comments Unable to follow commands M6 PT-IP Treatment Start: 11/18/23 07:44 Freq: NEEDED Status: Active Protocol: Document 11/18/23 08:14 MB (Rec: 11/18/23 08:36 MB [id number]) Physical Therapy Treatment Exercises Exercises Ankle Pumps,Gluteal Sets,Quad Sets Education Education Provided Weight Bearing Status,Post-Op Packet,Safety Other Treatments Other Treatment Performed Attempted stair training and AD ed, education to about assisting pt M7 PT-IP Assessment and Plan Start: 11/18/23 07:44 Freq: NEEDED Status: Active Protocol: Document 11/18/23 08:14 MB (Rec: 11/18/23 08:36 MB [id number]) PT Summary Assessment and Plan Potential Rehabilitation Potential Fair Status of Condition at Evaluation Evolving Summary Impairments Pain,ROM,Strength,Balance, Coordination,Cognition,Bed Mobility,Transfers,Gait, Activity Tolerance Progress Towards Goals Slow Progress - Other Assessment Summary Pt is an 83 y/o female presenting in confusional state this morning. She does not know the date, cannot answer questions about pain and does not know what surgery she had yesterday. She cannot follow commands for simple LE exercises and PT con't to re- orient her to situation, hand placement, gait training, etc, throughout gait. is nearby and interrupts to answer questions and state that a family member is arriving tomorrow to help them at the house who works with old people but does not step in or seem concerned that he will have to help get pt home and up the 1-5 steps and assist her until then. PT must cue several times to come to watch stair training and PT notes that he notices pt's breakfast is in room when returning to room but he does not make moves to assist pt. This appears more cognitive awareness in nature and not malicious. Overall, pt requires mod A for all tasks d/t severely impaired cognition and safety awareness and does not currently seem able to manage this. Recommend SNF at d/c currently. Goals Bed Mobility Goal Standby Assistance Transfer Goal Standby Assistance,Front Wheeled Walker Gait Goal Standby Assistance,Front Wheel Walker Gait Distance 80 Other Goals Pt will ascend and descend 1 platform step with RW and no more than CGA to allow safe home entrance. Pt will ascend and descend 5 steps with left rail and right cane ascend and reverse descend to allow mobility in home with no more than CGA. Days to Meet Goals 5 Frequency of Treatment Frequency Of Treatment Twice a Day Treatment Plan Physical Therapy Treatment Plan Bed Mobility Training,Transfer Training,Gait Training, Therapeutic Exercise,Balance Retraining,Post Op Education, Discharge Planning,Hot or Cold Pack,Neuromuscular Re-ed, Coordination Retraining,Manual Therapy Other Recommendations and Next Treatment Bed mobility and platform step Focus training Weight Bearing Status Weight Bearing Status Weight Bear as Tolerated Recommendations To Nursing Amount of Assist Needed 1 Person Assist Discharge Recommendations PT Discharge Recommendations Home vs SNF Transportation Needs at Discharge Private Vehicle,Wheelchair/ Cabulance
[2023-11-18 09:02] VITALS: BP 157/67; PULSE 60
[2023-11-18] MEDS: FUROSEMIDE 20 MG TABLET PO (09:02)
[2023-11-18] MEDS: DOCUSATE 100 MG CAPSULE PO (09:02)
[2023-11-18] MEDS: FOLIC ACID 1 MG TABLET PO (09:02)
[2023-11-18] MEDS: allopurinoL 100 MG TABLET PO (09:02)
[2023-11-18] MEDS: carvediloL 12.5 MG TABLET 25 MG PO (09:02)
[2023-11-18 09:04] VITALS: BP 157/67; PULSE 60
[2023-11-18] MEDS: LOSARTAN 50 MG TABLET PO (09:04)
[2023-11-18] MEDS: CHOLECALCIFEROL (VITAMIN D3) 1,000 UNIT TABLET 2000 UNIT PO (09:04)
--- NOTE | 2023-11-18 10:39 | OT.IP.EVAL ---
Addendum entered and electronically signed by Rosalia Pino OT 11/18/23 12:09: esign Original Note: Current Diagnoses Unilateral primary osteoarthritis, right knee (11/17/23) Surgery Performed Operation Date: 11/17/23 12:45 Actual Procedures p Total Knee Arthroplasty - Robot(Right) - Tiesha Cespedes MD Past Medical History (Last Updated 11/17/23 @ 11:57 by lAbert Andrade, [place]) A-fib Anemia CAD (coronary artery disease) CHF (congestive heart failure) CKD (chronic kidney disease), stage III GERD (gastroesophageal reflux disease) HLD (hyperlipidemia) HTN (hypertension) Memory deficit 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) Normal cardiac ejection fraction (07/30/23) Thrombocytopenia Surgical History (Last Updated 11/12/23 @ 13:12 by Ade Sanchez RN) H/O cardiac catheterization (2017) H/O hernia repair (10/19/23) H/O ovarian cystectomy (09/2016) History of bone marrow biopsy (09/2009) History of partial hysterectomy Occupational Therapy Inpatient Evaluation/Re-Eval M1 PT/OT-IP Prior Functional Status Start: 11/18/23 07:44 Freq: NEEDED Status: Active Protocol: Document 11/18/23 11:53 [facility] (Rec: 11/18/23 12:06 [facility] [id number]) Medical Review Prior Functional Status Medical History Reviewed Yes Communication Unsure baseline diet and communication, pt looks to to answer all questions, including about pain Mobility and Gait Unclear but it sounds like she was recently using [facility] Activities of Daily Living and IADL's states that pt bathed herself and it sounds like sponge baths and he assisted with dressing and everything else Social History Household Members spouse Living Arrangements House Number of Floors (Floors) Two Floors Number of Stairs To Enter/Railing? 5 steps with left rail to enter from the garage or one step that sounds like platform step to enter, second set of 9 steps with left rail in home Home Environment Standard Height Toilet,Walk in Shower,Tub/Shower Home Equipment Front Wheel Walker,Straight Cane,Bedside Commode,Grab Bars In Shower Employment Status Retired Additional Social History Comment Pt's daughter in law to come and stay with them starting tomorrow night. M2 OT-IP Current Condition Start: 11/18/23 11:52 Freq: Status: Active Protocol: Document 11/18/23 11:53 [facility] (Rec: 11/18/23 12:06 [facility] [id number]) Occupational Therapy Current Condition Current Condition Evaluation Date 11/18/23 Treatment Diagnosis S/P R TKA Diagnosis Onset Date 11/17/23 M3 OT- IP Subjective and Pain Start: 11/18/23 11:52 Freq: Status: Active Protocol: Document 11/18/23 11:53 [facility] (Rec: 11/18/23 12:06 [facility] [id number]) OT- Subjective Occupational Therapy Visit Type Type Initial Evaluation Visit Start Time 09:56 Visit Stop Time 10:39 Occupational Therapy Visit Comments Patient Comments Pt agreed to get up to use the bathroom, pt's in the room for caregiver training. Patient/Caregiver Goals To go home. OT Pain Assessment Pain When Pain Assessed During Mobility Pain Present Pain Present Pain Reported Location Right leg Pain Behaviors Facial Grimacing,Guarding M4 OT- IP ADL's Start: 11/18/23 11:52 Freq: Status: Active Protocol: Document 11/18/23 11:53 [facility] (Rec: 11/18/23 12:06 [facility] [id number]) OT [id number] General Evaluation Self-Feeding Ability Standby Assistance Comments OT Self-Feeding Comments Set-up. OT ADL-Grooming Comments OT Grooming Comments Set-up. OT ADL-Oral Care Comments Oral Care Comments NOt performed. OT ADL-Dressing General Eval Lower Body Dressing Ability Maximum Assistance Areas Needing Assistance Socks Comments OT Dressing Comments Pt will need assist for all needs at this as do so prior. OT ADL-Toileting General Evaluation Toileting Ability Maximum Assistance Areas Needing Assistance Manage Clothing,Perform Perineal Hygiene Comments OT Toileting Comments Pt will need assist for completeness and assist for all clothing needs. Educated pt to focus on her balance and allow her to do her clothing. OT ADL-Bathing Comments OT Bathing Comments Pt will benefit from obtaining a tub bench to use. M5 OT- IP IADL's Start: 11/18/23 11:52 Freq: Status: Active Protocol: Document 11/18/23 11:53 [facility] (Rec: 11/18/23 12:06 [facility] [id number]) OT-Instrumental Activities of Daily Living Home Safety Awareness Awareness of Need for Assistance at Home Decreased Awareness Ability to Problem Solve Emergency Unable to Problem Solve Situations Home Safety Comments Pt is dependent of her for most of her need at this time. Medication Management Medication Management Caregiver Administers Money Management Money Management Caregiver Provides Assistance Meal Preparation Meal Preparation Caregiver Provides Assist Raisin Separator Operator Raisin Separator Operator Caregiver Provides Assist M6 OT- IP Functional Cognition Start: 11/18/23 11:52 Freq: Status: Active Protocol: Document 11/18/23 11:53 [facility] (Rec: 11/18/23 12:06 [facility] [id number]) Cognitive Factors Limiting Selfcare Function Cognitive Ability Level of Alertness Confusional State Patient Orientation Name Attention Span Ability Capable of Focused Attention, Unable to Sustain Attention Ability to Follow Commands Able to Follow One Step Commands with Increased Time, Able to Follow One Step Commands with Repetition Memory Description Short Term Impaired,Transfer Coordinator Impaired,Working Impaired Safety Awareness Underestimates Need for Assistance Cognitive Comments Cognitive Assessment Comments Pt needing concrete cues to follow. Pt is very confused and needing hand over hand assist for hand placement to place on the FWW, cues to push up from surfaces. Pt highly distracted and has difficulty to sty on task. Pt's states prior pt has memory issues but after surgery seem more confused than usual. OT- Vision and Hearing OT- Vision Assessment Visual Acuity Glasses All The Time M7 OT- IP Mobility and Balance Start: 11/18/23 11:52 Freq: Status: Active Protocol: Document 11/18/23 11:53 [facility] (Rec: 11/18/23 12:06 [facility] [id number]) OT-Transfer Assessment Sit to and From Stand Sit to and from Stand Moderate Assistance Transfers Transfer Ability Moderate Assistance Technique Transfer Destination Chair,Toilet Transfer Technique Stand Step Pivot Devices Transfer Assistive Devices Gait Belt,Front Wheeled Walker Comments Mobility Comments Pt needing MODA overall due to assist for balance, assist to guide the FWW and cues for safety as at times pt just lets go of the FWW. Pt's to benefit from more training with pt for safety needs. OT- Balance Assessment Sitting Balance and Reactions Static Sitting Balance Ability Good Dynamic Sitting Balance Ability Fair Standing Balance and Reactions Static Standing Balance Ability Poor Dynamic Standing Balance Ability Poor M8 OT- IP Objective Assessments Start: 11/18/23 11:52 Freq: Status: Active Protocol: Document 11/18/23 11:53 [facility] (Rec: 11/18/23 12:06 [facility] [id number]) OT Gross Range of Motion Upper Extremity Range of Motion Assessment Within Functional Limits OT Strength Upper Extremity Strength Assessment Within Functional Limits M9 OT- IP Assessment and Plan Start: 11/18/23 11:52 Freq: Status: Active Protocol: Document 11/18/23 11:53 [facility] (Rec: 11/18/23 12:06 [facility] [id number]) OT Summary Assessment and Plan Potential Rehabilitation Potential Good Analytic Complexity at Evaluation Low Summary OT Impairments Pain,Strength,Balance, Functional Cognition, Functional Mobility,Dressing, Toileting,Bathing,Toilet Transfers,Shower Transfers, Activity Tolerance Progress Towards Goals Slow Progress due to Medical Issues,Slow Progress due to Activity Tolerance,Slow Progress due to Cognition Assessment Summary Pt low complexity and main barriers are pain, steps, and easily distracted and more confused per pt's . Able to do caregiver training with pt's for ADL and mobility needs and will continue to benefit from more practice especially as pt appears to be more confused than prior. Pt to go home with 24/7 assist and their daughter in law to fly in tomorrow night to help assist with pt's care. Initially pt may benefit from home health versus outpt PT. Goals Self-Feeding Goal Standby Assistance Grooming Goal Standby Assistance Dressing Goal Minimal Assistance Toileting Goal Minimal Assistance Bathing Goal Moderate Assistance Toilet Transfer Goal Standby Assistance Shower Transfer Goal Standby Assistance Days to Meet Goals 10 Frequency of Treatment Other frequency 5x/week Treatment Plan OT Treatment Plan ADL Training,Functional Cognition Training,Functional Mobility,Patient/Family Education,Discharge Planning Discharge Recommendations OT Discharge Recommendations Home with 24/7 Assist Available,Home Health Home Equipment Needs HHSP, shower chair/tub bench Transportation Needs at Discharge Private Vehicle
--- NOTE | 2023-11-18 14:29 | PT.IPTN ---
Current Diagnoses Unilateral primary osteoarthritis, right knee (11/17/23) Surgery Performed Operation Date: 11/17/23 12:45 Actual Procedures p Total Knee Arthroplasty - Robot(Right) - Tiesha Cespedes MD Physical Therapy Treatment Note M2 PT-IP Current Condition Start: 11/18/23 07:44 Freq: NEEDED Status: Active Protocol: Document 11/18/23 08:14 MB (Rec: 11/18/23 08:36 MB [id number]) Physical Therapy Current Condition Current Condition Evaluation Date 11/18/23 Treatment Diagnosis R TKA M3 PT-IP Subjective Start: 11/18/23 07:44 Freq: NEEDED Status: Active Protocol: Document 11/18/23 14:29 TS (Rec: 11/18/23 14:45 TS [id number]) Subjective Physical Therapy Visit Type Type Treatment Note Visit Start Time 13:45 Visit Stop Time 14:29 Number of INDUSTRIAL ROOFER HELPER Visits 1 Physical Therapy Visit Comments Patient Comments Pt found resting in bed, pt reports feeling better this afternoon, spouse agrees. Pt is agreeable to PT. She appears to have some confusion . Therapy Pain Assessment Pain When Pain Assessed During Mobility Pain Present Pain Present Pain Reported M4 PT-IP Mobility and Gait Start: 11/18/23 07:44 Freq: NEEDED Status: Active Protocol: Document 11/18/23 14:29 TS (Rec: 11/18/23 14:45 TS [id number]) PT-Bed Mobility Assessment Supine to Sit Supine to Sit Minimal Assistance,1 Person Assistance Sit to Supine Sit to Supine Minimal Assistance,1 Person Assistance Scooting Scooting to Edge of Bed Contact Guard Assistance PT-Transfer Assessment Sit to and From Stand Sit to and from Stand Minimal Assistance,1 Person Assistance Equipment Transfer Assistive Device Gait Belt,Front Wheeled Walker Orthotic/Prosthetic Devices or Brace: No Comments Mobility Comments Supine to sit Chary for RLE, spouse assists pt to EOB and provides cues. Pt is impulsive and requires cues to stay seated before donning of belt. Spouse dons gait belt prior to standing. STS with FWW Chary . She ambulates ~100'Chary with FWW, INDUSTRIAL ROOFER HELPER cues spouse to cue pt for mangement of FWW and directions in hallway, spouse does well with cues. She performs steps on platform steps x2 with FWW and Chary from spouse and cues for sequencing. She performs steps x3 with single handrail and use of SPC and CGA Chary from spouse, pt requires constant cues for sequencing. She ambulates back to room with cues for directions from spouse. Sit to supine into bed Chary from spouse. Pt was left in bed, all needs met. Gait Assessment Gait Gait Assistance Required: Minimum Assistance,1 Person Assist Distance (Feet) 100 Able to Maintain Weight Bearing Status Yes During Gait Assistive Devices Assistive Device Gait Belt,Front Wheeled Walker Orthotic/Prosthetic Devices or Brace: No Gait Deviations General Gait Pattern Antalgic,Decreased Stride Length,Decreased Feet Clearance,Flexed Trunk,Narrow Based Gait,Step-to Gait Factors Limiting Gait Function Factors Limiting Gait Function Decreased Activity Tolerance, Decreased Strength,Difficulty Following Directions, Incoordination,Limited Range of Motion,Pain,Poor Balance, Poor Safety Awareness Stair Climbing Assessment Evaluation Level of Assist On Stairs Minimal Assistance,1 Person Assistance Devices Stair Climbing Assistive Devices Straight Cane,Front Wheel Walker,Left Railing,Right Railing Technique/Endurance Stair Climbing Direction Ascend and Descend Stair Climbing Technique Step to Step Number of Steps Climbed 5 Stair Climbing Set # Repetitions (reps) 1 PT-Balance Assessment Sitting Balance and Reactions Static Sitting Balance Ability Good Dynamic Sitting Balance Ability Fair Standing Balance and Reactions Static Standing Balance Ability Good Dynamic Standing Balance Ability Fair Device Used FWW M5 PT-IP Objective Assessments Start: 11/18/23 07:44 Freq: NEEDED Status: Active Protocol: Document 11/18/23 08:14 MB (Rec: 11/18/23 08:36 MB [id number]) Orientation Orientation/Cognition Level of Alertness Confusional State Orientation Name,Birthday Safety Awareness Decreased Safety Awareness Memory Description Short Term Impaired,Steel Sash Erector Impaired Comments Pt thinks it is May and does not know what she had done as far as surgery yesterday. PT helps reorient her to October but training for right knee is not helpful for pt and cannot follow commands for ankle pump, HS or QS. Gross Range of Motion Upper Extremity ROM Impairments Defer to OT Lower Extremity ROM Assessment Right Impaired Impairments Passive movement only with moving pt to sitting in recliner and flexion to 70 deg . She lacks about 15 deg extension with legs out straight. Strength Lower Extremity Strength Assessment Right Impaired Comments Strength Comments Pt does not follow MMT Coordination Assessment Gross Coordination Gross Coordination Impaired Sensation Assessment Comments Sensation Comments Unable to follow commands M6 PT-IP Treatment Start: 11/18/23 07:44 Freq: NEEDED Status: Active Protocol: Document 11/18/23 14:29 TS (Rec: 11/18/23 14:45 TS [id number]) Physical Therapy Treatment Education Education Provided Weight Bearing Status,Post-Op Packet,Safety M7 PT-IP Assessment and Plan Start: 11/18/23 07:44 Freq: NEEDED Status: Active Protocol: Document 11/18/23 14:29 TS (Rec: 11/18/23 14:45 TS [id number]) PT Summary Assessment and Plan Potential Rehabilitation Potential Fair Summary Impairments Pain,ROM,Strength,Balance, Coordination,Cognition,Bed Mobility,Transfers,Gait, Activity Tolerance Progress Towards Goals Progressing Toward Goals Assessment Summary Mayi is progressing well with her mobility. She is Chary for all bed mobility with spouse assist. She progressed her gait to ~100'Chary with heavy cueing from spouse for safety. She performed stairs x2 on platform step and x3 with use of single rail and cane. Pt requires lots of cueing for safety and sequencing of mobility, she is confused. Spouse instructed pt in bed mobility, STS, gait and stairs . Spouse was instructed by INDUSTRIAL ROOFER HELPER to always use gait belt when she is out of bed and to always provide cues, spouse agrees. PT is recommending home vs SNF at this time. Spouse would like pt to go home and pt would liek to go home. She is mobilizing well but requires lots cues for safety. Goals Bed Mobility Goal Standby Assistance Transfer Goal Standby Assistance,Front Wheeled Walker Gait Goal Standby Assistance,Front Wheel Walker Gait Distance 80 Other Goals Pt will ascend and descend 1 platform step with RW and no more than CGA to allow safe home entrance. Pt will ascend and descend 5 steps with left rail and right cane ascend and reverse descend to allow mobility in home with no more than CGA. Days to Meet Goals 5 Frequency of Treatment Frequency Of Treatment Twice a Day Treatment Plan Physical Therapy Treatment Plan Bed Mobility Training,Transfer Training,Gait Training, Therapeutic Exercise,Balance Retraining,Post Op Education, Discharge Planning,Hot or Cold Pack,Neuromuscular Re-ed, Coordination Retraining,Manual Therapy Other Recommendations and Next Treatment Bed mobility and platform step Focus training Weight Bearing Status Weight Bearing Status Weight Bear as Tolerated Recommendations To Nursing Amount of Assist Needed 1 Person Assist Discharge Recommendations PT Discharge Recommendations Home with 14/09 Assist Available,Home vs SNF Transportation Needs at Discharge Private Vehicle,Wheelchair/ Cabulance
--- NOTE | 2023-11-18 14:37 | CM.DANOTE ---
Patient is an 83 yo female who was admitted [facility] on 11/17/23 for RTKA. Pt has [employer] and [employer] for insurance and her PCP is Phyllis Cortez. EMR was reviewed. Per Ortho PA, pt tolerated procedure well and to work with PT/OT for plan of discharge home today. Per SERGING MACHINE OPERATOR/OT, pt able to participate in eval and treat but with some confusion and spouse participated in CG training and stairs. Pt's memory issues the biggest safety concern but recommending home with 14/09 and HH but pt and spouse want to continue with their outpt PT. SW met bedside with pt and spouse and explained role and they confirm they live in [place] at home and pt is somewhat independent at baseline with FWW and has some mild memory issues at baseline. Spouse confirms he assists pt with some ADLs as needed and drives and helps manage pt's medications. They confirm preference is home with outpt PT for discharge today. Spouse confirms their Dtr will arrive tomorrow and stay with them for a week for additional assist as she has experience in elder care/caregiving. Spouse feels he can manage pt at home and that her increased confusion/memory issues at the hospital will improve once in familiar surroundings. SERGING MACHINE OPERATOR and SW updated RN who will gather discharge instructions and pwk for plan of discharge home today. REGINA Nuñez Discharge Planning/Care Management CM Discharge Assessment Start: 11/18/23 14:35 Freq: Status: Active Protocol: Document 11/18/23 14:36 BF (Rec: 11/18/23 14:37 [id number]) Discharge Planning Assessment Assigned Butcher'S Assistant REGINA Haywood DPOA/Assigned Designee Name spouse Ed Contact Information [phone] Advance Directives? No Advance Directives on File No History Provided By Patient,Significant Other, Medical Record Has Patient been admitted in last 30 No days? Prior Living Arrangements House Household Members spouse Type of transporation used prior to Relies on Others admit Independent with ADL's Yes: spouse helps with some ADLs Is patient alert and oriented? No: some mild confusion at baseline Needs Assistance With Meal Prep,Managing Medications ,Home Chores / Shopping Caregiver for Another No Community Services used prior to Physical Therapy admission: DME Already Rented / Owned FWW / Walker,Cane Patient/Family Preference OP PT Therapy Barriers to Discharge No Discharge Plan Home Community Services Physical Therapy Transportation Arrangement spouse bedside and plans to transport at d/c Referrals Initiated None needed Whiteboard Updated in Patient Room with Yes name and ext. # of Butcher'S Assistant Review Status In Process Please Provide Date Initial DC 11/18/23 Assessment Was Performed Next Review Type Continued Stay Review Pre-Anesthesia Assessment Start: 11/12/23 12:30 Freq: Status: Active Protocol: Document 11/12/23 12:30 LB (Rec: 11/12/23 13:48 LB [id number]) Pre-Anesthesia Assessment PAC Comment Spoke with Ed. Patient Information Reviewed Via Phone Assessment Assessment Completed With Spouse Diagnostic Results BMP/CMP,CBC,Urinalysis Comment 11/17/23 outside labs. EKG outside EKG. Primary Care Provider Phyllis Cortez Seen Specialist in Last 12 Months Yes Specialist Seen Emergency,Oncologist, Orthopedist Comment Clearance from oncology Clearance from cardiology Primary Language Romansh Preferred Language Romansh Ballistics Tester Required No Height 162.56 cm Weight 68.039 kg Body Mass Index (BMI) 25.7 Hearing Ability Normal Visual Assist Glasses Dentition Type Teeth, Natural Present Barriers to Learning Cognitive impairment,Memory Other Aids No Hx Anesthesia Reactions No Hx Family Anesthesia Reaction No Hx Malignant Hyperthermia No Hx Blood Transfusions No Anesthesia Review Requested No Diet Counselor No alcohol intake current alcohol intake frequency 0-2 drinks per day Smoking Status Current some day smoker Substance Use Type does not use Pain Present Pain Reported Comment right knee. Musculoskeletal Symptoms Difficulty Walking,Joint Pain History of Falling (Recent or History of No ) Patient is completely paralyzed or No completely immobile Prosthesis or Orthotic Device Cane,Front Wheel Walker Mental Status Forgets limitations Is patient on oxygen? No Does patient have BURNS/SOB No Hx Sleep Apnea No CPAP/BIPAP use not prescribed Currently Taking a Beta Nati Yes: Carvedilol 25mb BID Can You Climb a Flight of Stairs Without Yes SOB Hx Chest Pain No Hx SOB No Anti-Coagulant Therapy Yes: Eliquis - advised to hold 2 days prior to surgery by Dr Sage. Has a Scratch Finisher Yes Scratch Finisher name Dr Sage - [facility]. Cardiac Testing Yes: EKG 07/15, ECHO 06/15/23 Hx Pacemaker/ICD No Cardiac Clearance Received Yes Dysphagia No Gastrointestinal Symptoms Constipation Urinary Catheter Present No Hx Urinary Self Catheterization No Diabetes No Patient No Lactating No Hx Drug Resistant Organism No Presence of External or Internal Medical No Devices Have you had any close contact with No someone diagnosed with COVID-19? Are you experiencing any of these No symptoms symptoms? Received a COVID vaccine? Yes Marital Status Lives With spouse Current Living Arrangements House Number of Floors (Floors) Two Floors Number of Stairs To Enter/Railing? 9 steps up, 5 going down with railings. Support System Family,Spouse Does the Patient Have Assistance After Yes Surgery Patient Discharge Plan Description Return Home Comment Unsure of LOS. Emergency Contact Name Saeid Isabel - Emergency Contact Advance Directives? No PAC Instructions Assistance for 24 hours post- op,Durable medical equipment, Medications to take/avoid,No ETOH/petroleum product on skin DOS,NPO,Post-op transportation,Sensory aids, Sturdy shoes/comfortable clothes,Do not bring valuables and remove jewelry
--- NOTE | 2023-11-18 16:10 | PC.NURSE ---
Patient is A&OX1. She is very confused and requires frequent cueing on how to stand and use FWW, (not use furniture) she is able to tolerate putting weight on RLE and ambulate x1 assist. She talks about needing to go upstairs etc.. thinking she is at home. She is very forgetful and confused and needs assistance and direction on how to swallow her medications etc.. at bedside is very supportive and helpful guiding her consistently. He states she appears more confused her than at home. PT and OT work with patient and provide personal care service provider training. She is cleared this afternoon after second session of PT to discharge home with . He verbalizes understanding of her medications, site care, activity limitations, s/sx of infection as well as follow up post op appointment. She is escorted via w/ch by ENDOSCOPY SPECIALTY TECHNICIAN to private vehicle with this afternoon at 1530 with all of her personal belongings for discharge home.
== END 2023-11-18 15:30 | disposition home or self-care (01) ==
LOC: OR 10:44 → AC 10:45
PROVIDERS: PCP Nurse Practitioner Family; Referring Provider Orthopaedic Surgery Foot and Ankle Surgery; Visit Provider Orthopaedic Surgery Foot and Ankle Surgery
PROC: 0SRC0JZ Replacement of Right Knee Joint with Synthetic Substitute, Open Approach (ICD-10-PCS; CPT 27447; principal; 2023-11-17 12:45)
DX: M17.11 Unilateral primary osteoarthritis, right knee (principal); I48.91 Unspecified atrial fibrillation; D69.3 Immune thrombocytopenic purpura; I12.9 Hypertensive chronic kidney disease with stage 1 through stage 4 chronic kidney disease, or unspecified chronic kidney disease; N18.9 Chronic kidney disease, unspecified; Z79.01 Long term (current) use of anticoagulants; M25.761 Osteophyte, right knee
CPT/HCPCS: 27447; 20985; 36415; 73560; 80048; 85025; 94762; 97116; 97161; 97165; 97530; 97535; C1776; A9270; C9290; J0171; J0330; J0690; J1100; J1170; J1885; J2405; J2704; J3010

== ENCOUNTER 2024-04-10 13:12 | Emergency (ER) | payer MEDICARE, OTHER, SELFPAY ==
[2023-11-17 17:02] VITALS: BMI 23.6
[2024-04-10 13:39] VITALS: BP 149/68; PULSE 58; RESP 16; TEMP 36.6; O2SAT 95; BMI 23.1
--- NOTE | 2024-04-10 13:41 | DI.RAD.S_ITS ---
PROCEDURE: XR KNEE RT 3V INDICATIONS: swelling R knee, unk inj TECHNIQUE: 3 views of the knee were acquired. COMPARISON: [facility], CR, XR KNEE RT 1TO2V, 11/17/2023, 15:26. FINDINGS: Bones: No fractures or dislocations. No suspicious bony lesions. Well-aligned, intact right total knee arthroplasty . Soft tissues: Large joint effusion. No suspicious soft tissue calcifications. IMPRESSION: Large knee joint effusion, which may indicate injury or hardware malfunction. Dictated by: Nhan Rojas M.D. on 04/10/2024 at 15:04 Approved by: Nhan Rojas M.D. on 04/10/2024 at 15:05
[2024-04-10] MEDS: ACETAMINOPHEN 325 MG TABLET 975 MG PO (15:24)
--- NOTE | 2024-04-10 15:44 | ED_ITS ---
<Statement entered by Christopher Jordan, - 04/10/24 16:33> Dr. Jordan: I was immediately available in the department for consultation. I did not actually see the patient. HPI - Extremity Injury (Lower) General Chief Complaint: Extremity Injury, Lower Stated Complaint: R swollen knee Time Seen by Provider: 04/10/24 14:28 History of Present Illness HPI Narrative: 83-year-old female presents to the ED status post a right knee injury sustained just prior to arrival. Patient comes in with her who states that she injured her knee earlier today when she slipped on the stairs. Patient states that since then, it has been difficult to bear weight and walk. Knee is swollen. No numbness, tingling, weakness. Related Data Home Medications Medication Instructions Recorded Confirmed allopurinol 100 mg tablet 100 mg PO QDAY ##0 12/16/16 04/10/24 atorvastatin 80 mg tablet 80 mg PO HS ##0 12/16/16 04/10/24 furosemide 20 mg tablet 20 mg PO QDAY ##0 12/16/16 04/10/24 hydroxyurea 500 mg capsule 1,000 mg PO EVERY OTHER DAY ##0 12/16/16 04/10/24 losartan 50 mg tablet 50 mg PO QDAY ##0 12/16/16 04/10/24 apixaban 5 mg tablet (Eliquis) 5 mg PO BID 08/10/23 04/10/24 carvedilol 25 mg tablet 25 mg PO BID 08/10/23 04/10/24 cholecalciferol (vitamin D3) 50 25 mcg PO DAILY 11/12/23 04/10/24 mcg (2,000 unit) capsule (Vitamin D3) ferrous sulfate 27 mg iron tablet 27 mg PO DAILY 11/12/23 04/10/24 folic acid 800 mcg tablet 0.8 mg PO DAILY 11/12/23 04/10/24 magnesium 200 mg tablet 250 mg PO BID 11/12/23 04/10/24 Allergies Allergy/AdvReac Type Severity Reaction Status Date / Time Sulfa (Sulfonamide Allergy Unknown Vomiting Verified 11/17/23 11:11 Antibiotics) [SULFA (SULFONAMIDE ANTIBIOTICS)] rabeprazole [From AcipHex] AdvReac Rash Verified 11/17/23 11:27 Review of Systems Constitutional Constitutional: Denies chills, Denies fatigue, Denies fever(s), Denies frequent falls, Denies lethargy and Denies weakness Eyes Eyes: Denies change in vision, Denies eye discharge, Denies irritation and Denies loss of vision ENT Ears, Nose, Mouth, and Throat: Denies change in voice, Denies dizziness, Denies neck pain, Denies sore throat and Denies throat swelling Cardiovascular Cardiovascular: Denies chest pain, Denies irregular heart rhythm, Denies lightheadedness, Denies palpitations, Denies dyspnea, Denies dyspnea on exertion and Denies orthopnea Respiratory Respiratory: Denies cough, Denies dyspnea, Denies dyspnea on exertion and Denies wheezing Gastrointestinal Gastrointestinal: Denies abdominal pain, Denies change in bowel habits, Denies diarrhea, Denies nausea and Denies vomiting Musculoskeletal Musculoskeletal: Denies neck pain and Denies numbness Comments: Right-sided knee swelling, pain Integumentary/Breasts Skin/Breast: Denies pruritus, Denies erythema, Denies rash and Denies wounds Neurologic Neurologic: Denies behavioral changes, Denies confusion, Denies dizziness, Denies frequent falls, Denies loss of vision, Denies numbness and Denies weakness Psychiatric Psychiatric: Denies anxiety, Denies behavioral changes, Denies confusion, Denies depression, Denies homicidal ideation and Denies suicidal ideation Endocrine Endocrine: Denies fatigue, Denies flushing and Denies palpitations Hematologic/Lymphatic Hematologic/Lymphatic: Denies easy bruising Allergic/Immunologic Allergic/Immunologic: Denies urticaria, Denies throat swelling and Denies wheezing Patient History Medical History Memory deficit Normal cardiac ejection fraction (07/30/23) 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) A-fib CAD (coronary artery disease) Anemia CKD (chronic kidney disease), stage III GERD (gastroesophageal reflux disease) CHF (congestive heart failure) HLD (hyperlipidemia) HTN (hypertension) Thrombocytopenia Surgical History H/O hernia repair (10/19/23) H/O cardiac catheterization (2017) History of bone marrow biopsy (09/2009) H/O ovarian cystectomy (09/2016) History of partial hysterectomy Social History household members: spouse Smoking Status: Current some day smoker alcohol intake: current Smoking Status: Current some day smoker alcohol intake frequency: a few times a month Exam Narrative Exam Narrative: Const General:?cooperative, healthy appearing and comfortable HENKS Head:?normal to inspection Ears:?hearing grossly normal bilaterally Nose:?external nose normal Face and sinus:?normal facial exam and sinuses nontender Mouth:?oral mucosae normal Throat:?posterior oropharynx normal Eyes General:?appearance normal, both eyes and all related structures Neck Neck:?normal visual inspection and no lymphadenopathy noted Resp Effort & Inspection:?normal respiratory effort Auscultation:?clear to auscultation bilaterally Cardio Rate:?regular rate Rhythm:?regular rhythm Musculoskeletal Right knee appears somewhat swollen. No deformities. No tenderness to palpation. No bruising. Strength and sensation is intact. Neurovascularly intact. Neuro General:?patient alert, patient awake and patient oriented x3 Initial Vital Signs Initial Vital Signs: Vital Signs Temperature 97.8 F 04/10/24 13:39 Pulse Rate 58 L 04/10/24 13:39 Respiratory Rate 16 04/10/24 13:39 Blood Pressure 149/68 H 04/10/24 13:39 Pulse Oximetry 95 04/10/24 13:39 Oxygen Delivery Method Room Air 04/10/24 13:39 Course Orders Ordered: ED Orders 04/10/24 13:41 XR knee RT 3V Stat Discontinued Medications Acetaminophen (Acetaminophen 325 Mg Tablet) 975 mg PO NOW ONE Stop: 04/10/24 15:17 Last Admin: 04/10/24 15:24 Dose: 975 mg Documented By: ES Vital Signs Vital signs: Vital Signs - 8 hr 04/10/24 13:39 Temperature 97.8 F Pulse Rate 58 L Respiratory Rate 16 Blood Pressure 149/68 H Pulse Oximetry 95 Oxygen Delivery Method Room Air MDM - Extremity Injury (Lower) MDM Narrative Medical decision making narrative: 83-year-old female presents to the ED status post a right knee injury sustained just prior to arrival. X-ray was obtained which shows a large knee joint effusion. No fractures or dislocations. Discussed findings with patient. Recommend Tylenol, lidocaine patches, elevation, rest. Recommend follow-up with PCP as soon as possible. ED return precautions discussed with patient. Patient verbalized understanding. Medical records reviewed: Yes Discharge Plan Departure Patient Disposition: Home Clinical Impression: Knee pain Qualifiers: Chronicity: acute Laterality: right Qualified Code(s): M25.561 - Pain in right knee Instructions: DI for Knee Pain Activity Restrictions/Additional Instructions: You were evaluated in the ED today for right-sided knee pain. Your x-ray did not show any fractures or dislocations. You may continue to take Tylenol, apply lidocaine patches, elevate your leg above heart level. Please follow-up with your PCP as soon as possible. Return to the ED if you have worsening symptoms, numbness, tingling, weakness. Prescriptions: No Action Eliquis 5 mg tablet 5 mg PO BID carvedilol 25 mg tablet 25 mg PO BID hydroxyurea 500 MG capsule 1,000 mg PO EVERY OTHER DAY Qty: 0 losartan 50 MG tablet 50 mg PO QDAY Qty: 0 atorvastatin 80 MG tablet 80 mg PO HS Qty: 0 furosemide 20 MG tablet 20 mg PO QDAY Qty: 0 allopurinol 100 MG tablet 100 mg PO QDAY Qty: 0 magnesium 200 mg Tablet 250 mg PO BID ferrous sulfate 27 mg iron Tablet 27 mg PO DAILY cholecalciferol (vitamin D3) [Vitamin D3] 50 mcg (2,000 unit) Capsule 25 mcg PO DAILY folic acid 800 mcg Tablet 0.8 mg PO DAILY Referrals: Phyllis Cortez ARNP [Primary Care Provider] - Stand Alone Forms: Patient Portal/API/Survey
== END 2024-04-10 16:25 | disposition home or self-care (01) ==
PROVIDERS: Emergency Provider Student in an Organized Health Care Education/Training Program; PCP Nurse Practitioner Family
DX: M25.561 Pain in right knee (principal); W01.0XXA Fall on same level from slipping, tripping and stumbling without subsequent striking against object, initial encounter
CPT/HCPCS: 73562; 99283

== ENCOUNTER 2024-07-09 13:26 | Emergency (ER) | payer MEDICARE, OTHER, SELFPAY ==
[2023-11-17 17:02] VITALS: BMI 23.6
[2024-07-09 13:36] VITALS: BP 137/58; PULSE 61; RESP 18; TEMP 36.6; O2SAT 95; BMI 24.0
--- NOTE | 2024-07-09 13:37 | DI.RAD.S_ITS ---
PROCEDURE: XR KNEE RT 3V INDICATIONS: knee pain, falls, swelling not improving TECHNIQUE: 3 views of the knee were acquired. COMPARISON: [facility], CR, XR KNEE RT 3V, 04/10/2024, 14:37. [facility], CR, XR KNEE RT 1TO2V, 11/17/2023, 15:26. FINDINGS: Bones: No fractures or dislocations. No suspicious bony lesions. Well-aligned, intact right total knee arthroplasty without hardware complication. Soft tissues: Moderate joint effusion. No suspicious soft tissue calcifications. IMPRESSION: Moderate knee joint effusion, without displaced fracture or arthroplasty complication. Dictated by: Nhan Rojas M.D. on 07/09/2024 at 14:27 Approved by: Nhan Rojas M.D. on 07/09/2024 at 14:28
--- NOTE | 2024-07-09 14:13 | ED.LOWEXIN ---
HPI - Extremity Injury (Lower) <Susan Gutierrez PA-C - Last Filed: 07/09/24 18:55> General Chief Complaint: Extremity Injury, Lower Stated Complaint: Right knee pain Time Seen by Provider: 07/09/24 14:11 Source: patient and family Mode of arrival: Wheelchair History of Present Illness HPI Narrative: Ms. Isabel is a very pleasant 84-year-old female with a past medical history of severe memory loss, prior right knee replacement 2023, AFib on Eliquis, CKD, HTN, HLD, CHF who presents to the emergency department with her for right knee pain x1 week. Patient's has been reports that about 1 week ago he noticed his 's right knee was extremely swollen and bruised on the back, and she is having pain with ambulation. She ambulates with a cane. He assumes that she fell causing the knee pain because she does fall quite often however she does not recall falling and he did not witness her falling. He is using Tylenol and Lidoderm patches to help with her pain. States that she had a fall in the past that caused similar symptoms but the swelling went away much sooner than this swelling which is what prompted his ER arrival. Patient reports mild right knee pain at this time, she denies chest pain, shortness of breath, fevers, chills, nausea, vomiting. No open wounds. Related Data Home Medications Medication Instructions Recorded Confirmed allopurinol 100 mg tablet 100 mg PO QDAY ##0 12/16/16 04/10/24 atorvastatin 80 mg tablet 80 mg PO HS ##0 12/16/16 04/10/24 furosemide 20 mg tablet 20 mg PO QDAY ##0 12/16/16 04/10/24 hydroxyurea 500 mg capsule 1,000 mg PO EVERY OTHER DAY ##0 12/16/16 04/10/24 losartan 50 mg tablet 50 mg PO QDAY ##0 12/16/16 04/10/24 apixaban 5 mg tablet (Eliquis) 5 mg PO BID 08/10/23 04/10/24 carvedilol 25 mg tablet 25 mg PO BID 08/10/23 04/10/24 cholecalciferol (vitamin D3) 50 25 mcg PO DAILY 11/12/23 04/10/24 mcg (2,000 unit) capsule (Vitamin D3) ferrous sulfate 27 mg iron tablet 27 mg PO DAILY 11/12/23 04/10/24 folic acid 800 mcg tablet 0.8 mg PO DAILY 11/12/23 04/10/24 magnesium 200 mg tablet 250 mg PO BID 11/12/23 04/10/24 Allergies Allergy/AdvReac Type Severity Reaction Status Date / Time Sulfa (Sulfonamide Allergy Unknown Vomiting Verified 07/09/24 13:36 Antibiotics) [SULFA (SULFONAMIDE ANTIBIOTICS)] rabeprazole [From AcipHex] AdvReac Rash Verified 07/09/24 13:36 Review of Systems <Susan Gutierrez PA-C - Last Filed: 07/09/24 18:55> Review of Systems ROS Unobtainable: All systems reviewed & are unremarkable except as noted in HPI and below Patient History <Susan Gutierrez PA-C - Last Filed: 07/09/24 18:55> Medical History Memory deficit Normal cardiac ejection fraction (07/30/23) 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) A-fib CAD (coronary artery disease) Anemia CKD (chronic kidney disease), stage III GERD (gastroesophageal reflux disease) CHF (congestive heart failure) HLD (hyperlipidemia) HTN (hypertension) Thrombocytopenia Surgical History H/O hernia repair (10/19/23) H/O cardiac catheterization (2017) History of bone marrow biopsy (09/2009) H/O ovarian cystectomy (09/2016) History of partial hysterectomy Social History household members: spouse alcohol intake: current alcohol intake frequency: a few times a month Exam <Susan Gutierrez PA-C - Last Filed: 07/09/24 18:55> Narrative Exam Narrative: GENERAL: 84 year old patient appears stated age. Well-developed patient, in no acute distress. HEAD: Atraumatic. Normocephalic. NECK: Trachea midline. Cervical ROM intact. CARDIOVASCULAR: Regular rate and irregular rhythm. RESPIRATORY: ?Nonlabored respirations. ?Speaking in clear, full sentences. ?Clear to auscultation. GASTROINTESTINAL: Abdomen soft, non-tender, nondistended. EXTREMITIES: 1+ right lower extremity pitting edema called diffuse edema of right knee with healed anterior surgical scar, no erythema or increased warmth over the knee, significant ecchymosis on the posterior right leg. No open wounds. Palpable DP and PT pulses. There is no focal right knee tenderness, patient is able to flex and extend the knee equally on both sides. NEURO: Alert, clear speech, very poor memory, majority of history provided by . She has sensation intact to light touch on bilateral lower extremities and she ambulates independently with a cane. SKIN: Ecchymosis on the posterior aspect of the right leg extending up the posterior thigh and down the calf. Initial Vital Signs Initial Vital Signs: Vital Signs Temperature 97.8 F 07/09/24 13:36 Pulse Rate 61 07/09/24 13:36 Respiratory Rate 18 07/09/24 13:36 Blood Pressure 137/58 L 07/09/24 13:36 Pulse Oximetry 95 07/09/24 13:36 Oxygen Delivery Method Room Air 07/09/24 13:36 <Larisa Lewis DO - Last Filed: 07/11/24 15:39> Initial Vital Signs Initial Vital Signs: Vital Signs Temperature 97.8 F 07/09/24 13:36 Pulse Rate 61 07/09/24 13:36 Respiratory Rate 18 07/09/24 13:36 Blood Pressure 137/58 L 07/09/24 13:36 Pulse Oximetry 95 07/09/24 13:36 Oxygen Delivery Method Room Air 07/09/24 13:36 Course <Susan Gutierrez PA-C - Last Filed: 07/09/24 18:55> Orders Ordered: Discontinued Medications Hydrocodone Bitart/Acetaminophen (Hydrocodone/Acet 5/325 Tablet) 1 tab PO NOW ONE Stop: 07/09/24 15:21 Last Admin: 07/09/24 15:48 Dose: 1 tab Documented By: SURJIT Lidocaine (Lidocaine 5% Patch) 1 each TOP NOW ONE Stop: 07/09/24 15:21 Last Admin: 07/09/24 15:48 Dose: 1 each Documented By: SURJIT Vital Signs Vital signs: Vital Signs - 8 hr 07/09/24 13:36 07/09/24 15:30 Temperature 97.8 F 97.5 F L Pulse Rate 61 65 Respiratory Rate 18 16 Blood Pressure 137/58 L 150/60 H Pulse Oximetry 95 98 Oxygen Delivery Method Room Air Room Air <Larisa Lewis DO - Last Filed: 07/11/24 15:39> Orders Ordered: Discontinued Medications Hydrocodone Bitart/Acetaminophen (Hydrocodone/Acet 5/325 Tablet) 1 tab PO NOW ONE Stop: 07/09/24 15:21 Last Admin: 07/09/24 15:48 Dose: 1 tab Documented By: SURJIT Lidocaine (Lidocaine 5% Patch) 1 each TOP NOW ONE Stop: 07/09/24 15:21 Last Admin: 07/09/24 15:48 Dose: 1 each Documented By: SURJIT Vital Signs Vital signs: Vital Signs - 8 hr 07/09/24 13:36 07/09/24 15:30 Temperature 97.8 F 97.5 F L Pulse Rate 61 65 Respiratory Rate 18 16 Blood Pressure 137/58 L 150/60 H Pulse Oximetry 95 98 Oxygen Delivery Method Room Air Room Air MDM - Extremity Injury (Lower) <Susan Gutierrez PA-C - Last Filed: 07/09/24 18:55> Medical Records Attestation: I reviewed the patient's medical records. Medical records narrative: Reviewed prior ED visits on 04/05/2022 and 04/10/2024 Imaging Data Right Knee X-ray: Radiologist's Impression: PROCEDURE: XR KNEE RT 3V INDICATIONS: knee pain, falls, swelling not improving TECHNIQUE: 3 views of the knee were acquired. COMPARISON: [facility], XR KNEE RT 3V, 04/10/2024, 14:37. [facility], XR KNEE RT 1TO2V, 11/17/2023, 15:26. FINDINGS: Bones: No fractures or dislocations. No suspicious bony lesions. Well-aligned, intact right total knee arthroplasty without hardware complication. Soft tissues: Moderate joint effusion. No suspicious soft tissue calcifications. IMPRESSION: Moderate knee joint effusion, without displaced fracture or arthroplasty complication. Dictated by: Nhan Rojas M.D. on 07/09/2024 at 14:27 Approved by: Nhan Rojas M.D. on 07/09/2024 at 14:28 RLE Venous US: Radiologist's Impression: PROCEDURE: US PERIPH VENOUS LOW EXTREM RT INDICATIONS: nontraumatic RLE bruising swelling pain TECHNIQUE: Real-time imaging, as well as color and pulse Doppler interrogation, were performed of the lower extremity deep veins from the inguinal ligament to the popliteal fossa, with documentation of the visualized calf veins. COMPARISON: None. FINDINGS: The common femoral, femoral, popliteal, and the visualized calf veins are normally compressible, and free of intraluminal thrombus. Color and pulse Doppler demonstrate normal phasic intraluminal flow. There is normal augmentation response to distal compression maneuver. Calf edema present. IMPRESSION: No findings of lower extremity deep venous thrombosis. Dictated by: Nhan Rojas M.D. on 07/09/2024 at 15:20 Approved by: Nhan Rojas M.D. on 07/09/2024 at 15:20 [facility] Narrative Medical decision making narrative: 84-year-old female with a past medical history of severe memory loss, prior right knee replacement 2023, AFib on Eliquis, CKD, HTN, HLD, CHF who presents to the emergency department with her for right knee pain x1 week. Differential diagnosis includes but is not limited to right knee fracture, sprain, strain, contusion, effusion, hardware problem, DVT, hematoma, etc. On exam the patient is in no acute distress, nontoxic appearing, vital signs appropriate. She is a rather poor historian because of her memory and majority of history is provided by her . She has been having right knee pain swelling and bruising for the last week, has been assumed it was because of a fall but there was no witnessed fall. Physical exam reveals a diffusely edematous right knee with posterior ecchymosis of the right leg, both legs are neurovascularly intact. Right knee x-ray was obtained in triage, we will add on right lower extremity venous ultrasound as well. X-ray reveals moderate knee joint effusion without displaced fracture or arthroplasty complication. Patient's is concerned that despite patient's poor history she is in quite severe pain that he is having trouble managing at home. She last received 2 Tylenol at noon, she can not take NSAIDs, therefore we will treat with 1 dose of Heath here in the ED with compressive Donald wrap however discussed the importance of rice therapy for her pain in addition to schedule Tylenol and I discussed that we will not continue opioids regularly at home as it can contribute to worsening balance. Right lower extremity ultrasound negative for DVT, did show calf edema. At this time suspect patient's pain is related to right knee effusion, possible soft tissue injury, lidocaine patch and Donald wrap were applied, discussed follow up with PCP/ortho, ED return precautions discussed. Patient is stable for discharge home with her . Discharge Plan Departure Patient Disposition: Home Clinical Impression: Effusion of right knee Knee pain, right Qualifiers: Chronicity: acute Qualified Code(s): M25.561 - Pain in right knee Instructions: DI for Knee Pain Activity Restrictions/Additional Instructions: Dear Ms. Isabel, Thank you for coming to the emergency department. Today you were evaluated for right knee pain and bruising. Your x-ray showed no broken bones and your surgical hardware is in the correct position. You do have an effusion of the right knee which is fluid surrounding the knee joint that can cause swelling and pain. The ultrasound of your leg shows no blood clots. Please use RICE therapy for your pain in addition to acetaminophen. Rest the painful area. Ice the area of pain/swelling for at least 15 minutes, 4x a day. Compress the area of swelling using a brace, wrap, or splint if applied. Elevate the painful or swollen extremity by supporting it above the level of the heart with pillows when sitting or laying. Please take Acetaminophen (Tylenol) for pain. This is available over the counter. You may take Acetaminophen 650 mg every 4-6 hours for pain OR 1,000 mg every 8 hours. Do not exceed 3000 mg of Tylenol a day as this can cause liver damage. Do not drink alcohol with this medication. You may also apply lidocaine patches directly to the right knee or apply topical Voltaren gel to the knee. Please call to schedule an appointment with your primary care doctor for follow up or your orthopedic surgeon for follow up and further management. Please follow up with your primary care doctor within the next 2-3 days for ER follow-up. (If you do not have a PCP you can call [phone]. ?to schedule an appointment with an [facility] Primary Care Provider) IF YOU DEVELOP ANY NEW OR WORSENING SYMPTOMS, RETURN TO THE ER! Please read the attached instructions, they highlight more specific treatments and interventions for you at home. Thank you for letting me participate in your care, Susan Gutierrez PA-C Prescriptions: No Action Eliquis 5 mg tablet 5 mg PO BID carvedilol 25 mg tablet 25 mg PO BID hydroxyurea 500 MG capsule 1,000 mg PO EVERY OTHER DAY Qty: 0 losartan 50 MG tablet 50 mg PO QDAY Qty: 0 atorvastatin 80 MG tablet 80 mg PO HS Qty: 0 furosemide 20 MG tablet 20 mg PO QDAY Qty: 0 allopurinol 100 MG tablet 100 mg PO QDAY Qty: 0 magnesium 200 mg Tablet 250 mg PO BID ferrous sulfate 27 mg iron Tablet 27 mg PO DAILY cholecalciferol (vitamin D3) [Vitamin D3] 50 mcg (2,000 unit) Capsule 25 mcg PO DAILY folic acid 800 mcg Tablet 0.8 mg PO DAILY Referrals: Phyllis Cortez ARNP [Primary Care Provider] - Stand Alone Forms: Patient Portal/API/Survey ED Sign-out <Larisa Lewis DO - Last Filed: 07/11/24 15:39> Cosign ED Attending Cosrubyature Attestation: I was immediately available in the department for consultation.
--- NOTE | 2024-07-09 14:33 | DI.US.S_ITS ---
PROCEDURE: US PERIPH VENOUS LOW EXTREM RT INDICATIONS: nontraumatic RLE bruising swelling pain TECHNIQUE: Real-time imaging, as well as color and pulse Doppler interrogation, were performed of the lower extremity deep veins from the inguinal ligament to the popliteal fossa, with documentation of the visualized calf veins. COMPARISON: None. FINDINGS: The common femoral, femoral, popliteal, and the visualized calf veins are normally compressible, and free of intraluminal thrombus. Color and pulse Doppler demonstrate normal phasic intraluminal flow. There is normal augmentation response to distal compression maneuver. Calf edema present. IMPRESSION: No findings of lower extremity deep venous thrombosis. Dictated by: Nhan Rojas M.D. on 07/09/2024 at 15:20 Approved by: Nhan Rojas M.D. on 07/09/2024 at 15:20
[2024-07-09 15:30] VITALS: BP 150/60; PULSE 65; RESP 16; TEMP 36.4; O2SAT 98
[2024-07-09] MEDS: LIDOCAINE 5% PATCH 1 EACH TOP (15:48)
[2024-07-09] MEDS: HYDROCODONE/ACET 5/325 TABLET 1 TAB PO (15:48)
--- NOTE | 2024-07-09 16:11 | CM.DANOTE ---
ED SLIP DUMPER DCP Assessment Note: Pt is a 84yo female, resident of [place], is seen in the ED for right knee pain. Patient has a hx of TKA in Oct 2023, hx of Dementia. Pt lives in a house with her , Saeid. Pt's Primary Care Provider is SHEILA Cruz and insurance is Medicare and [employer]. Reviewed chart and discussed with multidisciplinary team pt's medical status and initial discharge needs. SLIP DUMPER consulted to assist with possible respite/home health care for patient. ED SLIP DUMPER met w/patient at bedside; introduced self and role. Patient was found in bed, alert, cooperative with assessment. Pt confirmed living situation and good support in . Pt spouse explained he has been primary caregiver of pt and they have been managing; just need pain managed for pt to be more independent of IADLs. ED SLIP DUMPER discussed home health referrals and pt and spouse both declined referral at this time. Pt spouse state their sons will be coming in this month to switch out with assisting with care for patient. ED SLIP DUMPER discussed continuing the conversation for home health or other services with PCP if necessary in the future. Pt spouse declines any need in the community at this time. Plan: Anticipating dc home with spouse when medically cleared, follow up with PCP. ED staff will follow closely for coordination of discharge plans. BENEDICT Evans Discharge Planning/Care Management CM Discharge Assessment Start: 07/09/24 16:09 Freq: Status: Active Protocol: Document 07/09/24 16:09 MW (Rec: 07/09/24 16:11 MW [id number]) Discharge Planning Assessment Assigned Epic Cadence Analyst REGINA Reyes DPOA/Assigned Designee Name Saeid Spouse Contact Information [phone] Advance Directives? No Advance Directives on File No History Provided By Patient,Significant Other, Medical Record Has Patient been admitted in last 30 No days? Prior Living Arrangements House Comment [place] Household Members spouse Type of transporation used prior to Relies on Others admit Independent with ADL's No: Moderately, needs support from spouse Is patient alert and oriented? No: Hx of Dementia Needs Assistance With Bathing,Meal Prep,Managing Medications,Home Chores / Shopping Caregiver for Another No DME Already Rented / Owned FWW / Walker,Cane Patient/Family Preference OP PT Therapy Discharge Plan Home Transportation Arrangement spouse bedside and plans to transport at d/c Referrals Initiated None needed Review Status In Process Please Provide Date Initial DC 07/09/24 Assessment Was Performed Next Review Type Continued Stay Review
== END 2024-07-09 16:19 | disposition home or self-care (01) ==
PROVIDERS: Emergency Provider Physician Assistant; PCP Nurse Practitioner Family
DX: M25.461 Effusion, right knee (principal); M25.561 Pain in right knee
CPT/HCPCS: 73562; 93971; 99283